=== PATIENT | female | born 1935 | race Caucasian/White ===

== ENCOUNTER 2017-05-10 08:45 | Emergency (ER) | payer MEDICARE, MEDICAID ==
[2017-05-10 09:12] VITALS: BP 105/60
--- NOTE | 2017-05-10 09:15 | UC ---
Skin Complaint HPI - HPI Summary HPI Summary: 81F with finger concern. Erythema and red, painful, and swollen pustule with central scab worsening over three days. No discharge. No fever. Index finger on the right. [ End ] - History of Current Complaint Chief Complaint: UCSkin Time Seen by Provider: 05/10/17 09:13 Stated Complaint: FINGER COMPLAINT Hx Obtained From: Patient Onset/Duration: Gradual Onset Pain Intensity: 5 - Allergy/Home Medications Allergies/Adverse Reactions: Allergies Allergy/AdvReac Type Severity Reaction Status Date / Time Aminoglycosides Allergy Unknown Verified 05/10/17 09:14 Reaction Details bacitracin Allergy Unknown Verified 05/10/17 09:14 Reaction Details neomycin Allergy Unknown Verified 05/10/17 09:14 Reaction Details polymyxin B Allergy Unknown Verified 05/10/17 09:14 Reaction Details Sulfa (Sulfonamide Allergy Unknown Verified 05/10/17 09:14 Antibiotics) Reaction Details Home Medications: Home Medications Acetaminophen [Acetaminophen Extra Strength] 1,000 mg PO BEDTIME 05/10/17 [ History Confirmed 05/10/17] Artificial Tear OPHTH.OINT* [Lacrilube OINT*] 1 applic BOTH EYES BEDTIME [History Confirmed 05/10/17] Artificial Tears* 15 ML BTL [Polyvinyl Alcohol 1.4% OPTH*] 1 drop BOTH EYES QID 05/10/17 [History Confirmed 05/10/17] Aspirin EC Low Dose* [Ecotrin EC Low Dose 81 MG*] 81 mg PO DAILY 05/10/17 [ History Confirmed 05/10/17] Atorvastatin* [Lipitor*] 20 mg PO QPM 05/10/17 [History Confirmed 05/10/17] Conjugated Estrogens VAG CM* [Premarin VAG CREAM*] 1 applic VAGINAL SEE INSTRUCTIONS 05/10/17 [History Confirmed 05/10/17] Cyclosporine 0.05% OPHTH (NF) [Restasis 0.05% OPHTH] 1 drop BOTH EYES BID [History Confirmed 05/10/17] Docusate CAP* [Colace Cap*] 100 mg PO TID 05/10/17 [History Confirmed 05/10/17] Ibandronate Sodium [Boniva] 150 mg PO MONTHLY 05/10/17 [History Confirmed ] Levothyroxine TAB* [Synthroid TAB*] 88 mcg PO DAILY 05/10/17 [History Confirmed 05/10/17] Metoprolol Succinate XL TAB* [Toprol XL TAB*] 25 mg PO DAILY 05/10/17 [History Confirmed 05/10/17] Nitrofurantoin Macrocrystals* [Macrodantin*] 50 mg PO DAILY 05/10/17 [History Confirmed 05/10/17] Omeprazole CAP* [Prilosec CAP* 20 MG] 40 mg PO DAILY 05/10/17 [History Confirmed 05/10/17] Valsartan TAB* [Diovan TAB*] 320 mg PO DAILY 05/10/17 [History Confirmed ] Vitamin THERAPEUTIC TAB* [Theragran TAB*] 1 tab PO DAILY 05/10/17 [History Confirmed 05/10/17] amLODIPine TAB* [Norvasc 5 mg TAB*] 10 mg PO DAILY 05/10/17 [History Confirmed 05/10/17] carBAMazepine TAB(*) [TEGretol TAB(*)] 100 mg PO BEDTIME 05/10/17 [History Confirmed 05/10/17] carBAMazepine TAB(*) [TEGretol TAB(*)] 300 mg PO BID 05/10/17 [History Confirmed 05/10/17] lamoTRIgine TAB(*) [LaMICtal TAB(*)] 200 mg PO BID 05/10/17 [History Confirmed 05/10/17] Review of Systems Skin: Other - finger pain and redness All Other Systems Reviewed And Are Negative: Yes PMH/Surg Hx/FS Hx/Imm Hx Previously Healthy: Yes Endocrine History: Hypothyroidism, Dyslipidemia Cardiovascular History: Hypertension GI/ History: Gastrointestional Bleed Psychological History: Bipolar Disorder - Surgical History Surgical History: Yes Surgery Procedure, Year, and Place: hysterectomy - Social History Alcohol Use: None Substance Use Type: None Smoking Status (MU): Never Smoked Tobacco Physical Exam Triage Information Reviewed: Yes Completion Of Physical Exam Limited Due To: Patient is uncooperative with exam - would pull away quickly when the finger was going to be palpated Vital Signs: Initial Vital Signs Temp 98.3 F 05/10/17 09:07 Pulse 62 05/10/17 09:07 Resp 16 05/10/17 09:07 BP 105/60 05/10/17 09:07 Pulse Ox 100 05/10/17 09:07 Vital Signs Reviewed: Yes Eyes: Positive: Conjunctiva Clear ENT: Positive: Hearing grossly normal Respiratory: Positive: Chest non-tender, Lungs clear, Normal breath sounds Cardiovascular: Positive: RRR Skin: Positive: Other - right infex finger with erythema, raised, red, tender area with break in skin centrally. no streaking. no active discharge. 5x5 mm Course/Dx - Course Course Of Treatment: pt not interested in I&D, will hot pack TID, start keflex and RTO if Sx worsen for I&D - Differential Diagnoses - Skin Complaint Differential Diagnoses: Cellulitis, Local Allergic Reaction, MRSA - Diagnoses Provider Diagnoses: cellulitis right index finger Discharge - Discharge Plan Condition: Good Disposition: HOME Patient Education Materials: Cellulitis (ED) Referrals: Herber Rapp MD [Primary Care Provider] - 1 Day
[2017-05-10] MEDS ORDERED: Cephalexin CAP* 500 MG PO ONE (09:40)
== END 2017-05-10 09:51 | disposition home or self-care (01) ==
LOC: UCCORT 08:45
DX: L03.011 Cellulitis of right finger (principal); E03.9 Hypothyroidism, unspecified; E78.5 Hyperlipidemia, unspecified; I10 Essential (primary) hypertension
CPT/HCPCS: 99212; A9270-GY; G0463

== ENCOUNTER 2017-05-12 13:22 | Emergency (ER) | payer MEDICARE, MEDICAID | END 2017-05-12 16:00 | disposition left against medical advice (07) | LOC: UCCORT 13:22 | DX: Z51.89 Encounter for other specified aftercare (principal); Z53.21 Procedure and treatment not carried out due to patient leaving prior to being seen by health care provider ==

== ENCOUNTER 2017-05-13 09:27 | Emergency (ER) | payer MEDICARE, MEDICAID ==
[2017-05-13 12:10] VITALS: BP 134/57
--- NOTE | 2017-05-13 12:25 | UC ---
Skin Complaint HPI - HPI Summary HPI Summary: Right index finger skin wound is not getting better. This started insidiously. she does have a pill rolling tremor that does abrade the area. They have been on keflex. No cultures were obtained. NO fevers or chills. Td 08. - History of Current Complaint Chief Complaint: UCSkin Time Seen by Provider: 05/13/17 11:59 Stated Complaint: RIGHT POINTER FINGER SKIN COMP Hx Obtained From: Family/Equipment Validation Specialist, Medical Records Onset/Duration: Gradual Onset, Lasting Days Skin Exposure Onset/Duration: Days Ago Timing: Constant Onset Severity: Moderate Current Severity: Moderate Pain Intensity: 6 Location: Discrete, Hand (Right) Character: Swelling, Redness, Raised Aggravating Factor(s): Touch Alleviating Factor(s): Nothing Associated Signs & Symptoms: Negative: Red Streaks, Joint Swelling - Allergy/Home Medications Allergies/Adverse Reactions: Allergies Allergy/AdvReac Type Severity Reaction Status Date / Time Aminoglycosides Allergy Unknown Verified 05/13/17 11:59 Reaction Details bacitracin Allergy Unknown Verified 05/13/17 11:59 Reaction Details neomycin Allergy Unknown Verified 05/13/17 11:59 Reaction Details polymyxin B Allergy Unknown Verified 05/13/17 11:59 Reaction Details Sulfa (Sulfonamide Allergy Unknown Verified 05/13/17 11:59 Antibiotics) Reaction Details Home Medications: Home Medications Cephalexin CAP* [Keflex CAP*] 500 mg PO TID 05/13/17 [History Confirmed 05/13/17 ] Review of Systems Skin: Other - wound as per HPi. All Other Systems Reviewed And Are Negative: Yes PMH/Surg Hx/FS Hx/Imm Hx Previously Healthy: No - MR. - Surgical History Surgical History: Yes Surgery Procedure, Year, and Place: hysterectomy - Family History Known Family History: Positive: Other - no related family history. - Social History Lives: [facility] Alcohol Use: None Substance Use Type: None Smoking Status (MU): Never Smoked Tobacco - Immunization History Most Recent Tetanus Shot: 2008 Physical Exam Triage Information Reviewed: Yes Appearance: Well-Appearing, No Pain Distress, Well-Nourished Vital Signs: Initial Vital Signs Temp 99 F 05/13/17 11:59 Pulse 64 05/13/17 11:59 Resp 18 05/13/17 11:59 BP 134/57 05/13/17 11:59 Pulse Ox 97 05/13/17 11:59 Vital Signs Reviewed: Yes Eyes: Positive: Conjunctiva Clear ENT: Positive: Normal ENT inspection Neck: Positive: Supple, Nontender, No Lymphadenopathy Respiratory: Positive: No respiratory distress, No accessory muscle use. Negative: Respiratory distress Cardiovascular: Positive: Brisk Capillary Refill Abdomen Description: Positive: No Organomegaly, Soft. Negative: Distended, Guarding Neurological: Positive: Muscle Tone Normal. Negative: Fatigued Psychological: Positive: Age Appropriate Behavior Skin Exam: Other - right index finger wound that is cropping up and there is clear serous drainage. Non fluctuant and no purulent drainage could be expressed. There is a rim of pink tissue surrounding the area about 4-5 mm. NO streaking and this is all localized to the the proximal phalynx. With firm palpation, there is no grimace or signs of pain. Course/Dx - Course Course Of Treatment: this may be infectious and keflex is prudent. This may also however but a spider bite with localized inflammation and or pyodermagangrenosum. They will add epsom salt soaks and vaseline gauze bandaging. They will be seeing pcp Thursday and i will give them number for derm should it not improve. For any spreading, they will go to the ED. - Diagnoses Provider Diagnoses: skin wound. possible spider bite. 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 Discharge - Discharge Plan Condition: Good Disposition: HOME Patient Education Materials: Acute Wound Care (ED) Referrals: Herber Rapp MD [Primary Care Provider] - 2 Days
[2017-05-13] MEDS ORDERED: Tetanus-Diptheria Toxoids* 0.5 ML SYRINGE IM ONE (12:27)
== END 2017-05-13 13:24 | disposition home or self-care (01) ==
LOC: UCCORT 09:27
DX: S61.210A Laceration without foreign body of right index finger without damage to nail, initial encounter (principal); R25.1 Tremor, unspecified; X58.XXXA Exposure to other specified factors, initial encounter; Y92.9 Unspecified place or not applicable; Z88.2 Allergy status to sulfonamides
CPT/HCPCS: 90471; 99213; G0463

== ENCOUNTER 2017-06-19 09:06 | Emergency (ER) | payer MEDICARE, MEDICAID ==
[2017-06-19 09:37] VITALS: BP 118/62
--- NOTE | 2017-06-19 10:24 | UC ---
Skin Complaint HPI - HPI Summary HPI Summary: lives at [facility]-patient developed a sore on left side of upper lip they want checked--no known injury - History of Current Complaint Chief Complaint: UCSkin Time Seen by Provider: 06/19/17 10:19 Stated Complaint: FACIAL SKIN COMPLAINT Hx Obtained From: Patient ?: No Onset/Duration: Sudden Onset, Lasting Days, Still Present Timing: Constant Onset Severity: Moderate Current Severity: Moderate Pain Intensity: 4 Pain Scale Used: 0-10 Numeric Location: Discrete Character: Redness Aggravating Factor(s): Nothing Alleviating Factor(s): Nothing Associated Signs & Symptoms: Positive: Negative - Allergy/Home Medications Allergies/Adverse Reactions: Allergies Allergy/AdvReac Type Severity Reaction Status Date / Time Aminoglycosides Allergy Unknown Verified 06/19/17 09:26 Reaction Details bacitracin Allergy Unknown Verified 06/19/17 09:26 Reaction Details neomycin Allergy Unknown Verified 06/19/17 09:26 Reaction Details polymyxin B Allergy Unknown Verified 06/19/17 09:26 Reaction Details Sulfa (Sulfonamide Allergy Unknown Verified 06/19/17 09:26 Antibiotics) Reaction Details Review of Systems Skin: Other - 2 mm diameter superficial skin leasion that staff reported had scant purulent drainage at first after warm packing Eyes: Negative ENT: Negative Respiratory: Negative Cardiovascular: Negative Gastrointestinal: Negative Genitourinary: Negative Motor: Negative Neurovascular: Negative Musculoskeletal: Negative Neurological: Negative Psychological: Negative Is Patient Immunocompromised?: No All Other Systems Reviewed And Are Negative: Yes PMH/Surg Hx/FS Hx/Imm Hx Previously Healthy: No - MR DD Endocrine History: Hypothyroidism, Dyslipidemia Cardiovascular History: Hypertension Neurological History: Seizures - Surgical History Surgical History: Yes Surgery Procedure, Year, and Place: hysterectomy - Family History Known Family History: Positive: Other - unable to obtain pt with MR DD staff does not know information - Social History Occupation: Disabled Lives: Alf Alcohol Use: None Substance Use Type: None Smoking Status (MU): Never Smoked Tobacco - Immunization History Most Recent Tetanus Shot: 2008 Physical Exam Triage Information Reviewed: Yes Appearance: Well-Appearing, No Pain Distress, Well-Nourished Vital Signs: Initial Vital Signs Temp 98.1 F 06/19/17 09:27 Pulse 63 06/19/17 09:27 Resp 18 06/19/17 09:27 BP 118/62 06/19/17 09:27 Pulse Ox 98 06/19/17 09:27 Vital Signs Reviewed: Yes Eye Exam: Normal Eyes: Positive: Conjunctiva Clear ENT Exam: Normal ENT: Positive: Normal ENT inspection, Hearing grossly normal. Negative: Nasal congestion Dental Exam: Normal Neck exam: Normal Neck: Positive: Supple, Nontender, No Lymphadenopathy Respiratory Exam: Normal Respiratory: Positive: Chest non-tender, No respiratory distress, No accessory muscle use Cardiovascular Exam: Normal Cardiovascular: Positive: RRR, Pulses Normal, Brisk Capillary Refill Musculoskeletal Exam: Normal Musculoskeletal: Positive: Strength Intact, ROM Intact, No Edema Neurological Exam: Normal Neurological: Positive: Alert Psychological Exam: Normal Psychological: Positive: Normal Response To Family - to patients usual Skin Exam: Other Skin: Positive: Other - 2 mm skin lesion without evidence of drainage or erythema, left upper lip Course/Dx - Course Course Of Treatment: warm soaks, mild soap and water wash bactroban bid until healed, follow with pcp prn - Diagnoses Provider Diagnoses: skin lesion left upper lip Discharge - Discharge Plan Condition: Stable Disposition: HOME Prescriptions: Mupirocin 2% OINT* [Bactroban 2 % Oint*] 1 applic TOPICAL BID #1 tube Patient Education Materials: Abrasion (ED), Warm Compress or Soak (ED) Referrals: Herber Rapp MD [Primary Care Provider] - If Needed
== END 2017-06-19 10:46 | disposition home or self-care (01) ==
LOC: UCCORT 09:06
DX: L98.9 Disorder of the skin and subcutaneous tissue, unspecified (principal); Z88.3 Allergy status to other anti-infective agents; Z88.8 Allergy status to other drugs, medicaments and biological substances; Z88.2 Allergy status to sulfonamides
CPT/HCPCS: 99212; G0463

== ENCOUNTER 2017-09-28 13:34 | Emergency (ER) | payer MEDICARE, MEDICAID ==
[2017-09-28 14:18] VITALS: BP 113/60
--- NOTE | 2017-09-28 14:25 | UC ---
Lower Extremity/Ankle HPI - HPI Summary HPI Summary: per care partner, pt has swelling to L lateral ankle since yesterday. today, pt c/ o pain. recently used leg braces but they were d/c'ed 2 weeks ago. pt does have a hx of hitting that ankle on her bed rail and wheelchair. no other hx of injury or fever. no rash. pt is non reliable and mainly non verbal. - History of Current Complaint Hx Obtained From: Family/Pc Maintenance Technician Onset/Duration: Gradual Onset Pain Intensity: 8 Aggravating Factor(s): Nothing Alleviating Factor(s): Nothing Able to Bear Weight: No - non ambulatory <Naomi Suazo - Last Filed: 09/28/17 14:19> <Lauren Barnhart - Last Filed: 09/29/17 07:05> - History of Current Complaint Chief Complaint: UCLowerExtremity Stated Complaint: LEFT ANKLE PAIN Time Seen by Provider: 09/28/17 14:18 - Allergies/Home Medications Allergies/Adverse Reactions: Allergies Allergy/AdvReac Type Severity Reaction Status Date / Time Aminoglycosides Allergy Unknown Verified 09/28/17 14:20 Reaction Details bacitracin Allergy Unknown Verified 09/28/17 14:20 Reaction Details neomycin Allergy Unknown Verified 09/28/17 14:20 Reaction Details polymyxin B Allergy Unknown Verified 09/28/17 14:20 Reaction Details Sulfa (Sulfonamide Allergy Unknown Verified 09/28/17 14:20 Antibiotics) Reaction Details Home Medications: Home Medications Cephalexin CAP* [Keflex 250 CAP*] 250 mg DAILY 09/28/17 [History Confirmed 09/28] PMH/Surg Hx/FS Hx/Imm Hx - Additional Past Medical History Additional PMH: IDD, L hemiplegia, seizures, anemia, uti's Endocrine History: Thyroid Disease, Dyslipidemia Cardiovascular History: Hypertension GI/ History: Gastroesophageal Reflux - Surgical History Surgical History: Yes Surgery Procedure, Year, and Place: hysterectomy - Family History Known Family History: Positive: Other - unable to obtain pt with MR DD staff does not know information - Social History Lives: [facility] Alcohol Use: None Substance Use Type: None Smoking Status (MU): Never Smoked Tobacco - Immunization History Most Recent Tetanus Shot: 2008 Vaccination Up to Date: Yes <Naomi Suazo - Last Filed: 09/28/17 14:19> Review of Systems Constitutional: Negative Skin: Negative Musculoskeletal: Other: - swelling/pain L lateral ankle Is Patient Immunocompromised?: No All Other Systems Reviewed And Are Negative: No - Comments Additional Review of Systems Comments: hx per care partner, pt has cognitive limitation plus is not reliable <Naomi Suazo - Last Filed: 09/28/17 14:19> Physical Exam Triage Information Reviewed: Yes Appearance: Well-Appearing Vital Signs: Initial Vital Signs Temp 98.6 F 09/28/17 14:06 Pulse 63 09/28/17 14:06 Resp 21 09/28/17 14:06 BP 113/60 09/28/17 14:06 Pulse Ox 99 09/28/17 14:06 Eye Exam: Normal Eyes: Positive: Conjunctiva Clear ENT: Positive: Normal ENT inspection Neck: Positive: Supple Respiratory: Positive: Lungs clear, Normal breath sounds, No respiratory distress Cardiovascular: Positive: RRR, No Murmur Abdomen Description: Positive: Nontender, No Organomegaly, Soft Bowel Sounds: Positive: Present Musculoskeletal: Positive: Other: - pt in her WC. comparison both lower legs: mild swelling L lateral ankle but no erythema or warmth. no reaction to palpation. passive rom with no sign of pain. if I ask if pain, pt nobs her head up and down(yes). foot with gross s/v and moves with stimulation. Neurological: Positive: Alert - per baseline according to care partner Psychological: Positive: Other: - normal respone to care partner. Skin Exam: Normal <Naomi Suazo - Last Filed: 09/28/17 14:19> Vital Signs: Initial Vital Signs Temp 98.6 F 09/28/17 14:06 Pulse 63 09/28/17 14:06 Resp 21 09/28/17 14:06 BP 113/60 09/28/17 14:06 Pulse Ox 99 09/28/17 14:06 <Lauren Barnhart - Last Filed: 09/29/17 07:05> Diagnostics - Radiology No standard instances Radiology Interpretation Completed By: Radiologist - L ankle=nonspecific sts, no fx(see report) <Naomi Suazo - Last Filed: 09/28/17 14:19> Lower Extremity Course/Dx - Course Course Of Treatment: acute swelling L lateral ankle. no fever or rash and not warm. no fx on xray. I think this is c/w bursitis - Differential Dx/Diagnosis Provider Diagnoses: Bursitis L lateral ankle <Naomi Suazo - Last Filed: 09/28/17 14:19> Discharge - Sign-Out/Discharge Documenting (check all that apply): Discharge/Admit/Transfer - Billing Disposition and Condition Condition: STABLE Disposition: Home <Naomi Suazo - Last Filed: 09/28/17 14:19> - Billing Disposition and Condition Condition: STABLE Disposition: Home <Lauren Barnhart - Last Filed: 09/29/17 07:05> - Discharge Plan Condition: Stable Disposition: HOME Prescriptions: Ibuprofen TAB* [Motrin TAB* 400 MG] 400 mg PO Q8H 5 Days #15 tab Patient Education Materials: Ankle Bursitis (ED) Referrals: Herber Rapp MD [Primary Care Provider] - If Needed Booker Cespedes MD [Medical Doctor] - As Soon As Possible Additional Instructions: SCRIPT FOR JIMMIE HEEL PILLOW FOR DAILY USE PROVIDED. Attestation Statement User Type: Provider - I was available for consult. This patient was seen by the SANDRA. The patient was not presented to, seen by, or examined by me. -Toddj <Lauren Barnhart - Last Filed: 09/29/17 07:05>
[2017-09-28] MEDS ORDERED: Ibuprofen TAB* 400 MG PO ONE (14:28)
--- NOTE | 2017-09-28 14:57 | RAD ---
Indication: Lateral ankle swelling and pain. Comparison: No relevant prior exams available on the [facility] PACS for comparison. Technique: AP, mortise, and crosstable lateral views LEFT ankle. Report: Bone density appears decreased throughout. No cortical disruption or suspicious trabecular irregularity to suggest fracture. Polyarticular mild osteoarthritis. No suggestion of talocrural joint effusion. Moderate nonfocal soft tissue swelling. No conspicuous foreign body or subcutaneous emphysema. Diffuse skeletal muscle atrophy. IMPRESSION: Negative for fracture. Nonspecific soft tissue swelling.
== END 2017-09-28 15:30 | disposition home or self-care (01) ==
LOC: UCCORT 13:34
DX: M71.572 Other bursitis, not elsewhere classified, left ankle and foot (principal); Z88.2 Allergy status to sulfonamides; Z88.8 Allergy status to other drugs, medicaments and biological substances
CPT/HCPCS: 99212; A9270-GY; G0463

== ENCOUNTER 2018-04-15 10:36 | Observation (INO) | payer MEDICARE, MEDICAID ==
--- NOTE | 2018-04-15 10:43 | ED ---
Neurological HPI - HPI Summary HPI Summary: LEVEL 5 CAVEAT Time seen by provider: 10:35. The patient is an 82 y/o F presenting to [facility] arriving by ambulance from [facility] with a chief complaint of stroke-like symptoms sudden onset 0930 this morning with last known well at 0900. At this time, the staff at the center noticed that the patient had a new onset of left-sided weakness and slurred speech. While the patient has hx of intellectual disability disorder and prior hx of left hemiplegia, it was seen that her baseline had changed. EMS reports that the patient is closer to baseline, and her left-sided strength improved during transport although it is still significantly weaker in the left than right. The patient has no current complaints. She has hx of HTN. Her history is limited by intellectual disability disorder. - History of Current Complaint Stated Complaint: POSS CODE BRICE Time Seen by Provider: 04/15/18 10:36 Hx Obtained From: EMS, Medical Records Hx From Patient Unobtainable Due To: Other - LEVEL 5 CAVEAT due to hx limited by intellecutal disability disorder Onset/Duration: Sudden Onset, Other Timing: Sudden Onset Neurological Deficit Location: LUE Character: Weak - in left arm, Impaired Speech Associated Signs and Symptoms: Positive: Weakness - in left arm, Impaired Speech - Allergy/Home Medications Allergies/Adverse Reactions: Allergies Allergy/AdvReac Type Severity Reaction Status Date / Time Aminoglycosides Allergy Unknown Verified 04/15/18 12:25 Reaction Details bacitracin Allergy Unknown Verified 04/15/18 12:25 Reaction Details neomycin Allergy Unknown Verified 04/15/18 12:25 Reaction Details polymyxin B Allergy Unknown Verified 04/15/18 12:25 Reaction Details Sulfa (Sulfonamide Allergy Unknown Verified 04/15/18 12:25 Antibiotics) Reaction Details Home Medications: Home Medications Acetaminophen SUPP* [Tylenol Supp*] 325 mg DC Q4H PRN 04/15/18 [History Confirmed 04/15/18] Acetaminophen TAB* [Tylenol TAB*] 650 mg PO Q4H PRN 04/15/18 [History Confirmed 04/15/18] Atorvastatin* [Lipitor*] 20 mg PO BEDTIME 04/15/18 [History Confirmed 04/15/18] Ferrous Gluconate TAB* [Fergon TAB*] 325 mg PO BID 04/15/18 [History Confirmed 04/15/18] GuaiFENesin DM* [Robitussin DM*] 5 ml PO Q4H PRN 04/15/18 [History Confirmed 01/22] Hypromellose [Genteal Severe] 0.3 % BOTH EYES TID PRN 04/15/18 [History Confirmed 04/15/18] Ibandronate TAB(NF) [Boniva(NF)] 150 mg PO MONTHLY 04/15/18 [History Confirmed 04/15/18] L. Acidophilus/Lactobac Spor [Acidophilus/l-Sporogenes] 1 tab PO BID 04/15/18 [ History Confirmed 04/15/18] Losartan TAB* [Cozaar TAB*] 100 mg PO DAILY 04/15/18 [History Confirmed 04/15/18 ] Mag Hydrox/Aluminum Hyd/Simeth [Antacid Maximum Strength Liq] 15 ml PO Q4HR PRN 04/15/18 [History Confirmed 04/15/18] Metoprolol Succinate XL TAB* [Toprol XL TAB*] 25 mg PO DAILY 04/15/18 [History Confirmed 04/15/18] Multivitamins/Minerals TAB* [Theragran/minerals TAB*] 1 tab PO DAILY 04/15/18 [ History Confirmed 04/15/18] Polyethylene Glycol 3350* [Miralax*] 17 gm PO DAILY PRN 04/15/18 [History Confirmed 04/15/18] Pseudoephedrine TAB* [Sudafed TAB*] 30 mg PO Q6H PRN 04/15/18 [History Confirmed 04/15/18] Sodium Phosphate ADULT ENEMA* [Fleet Enema*] 1 enema DC Q4D PRN 04/15/18 [ History Confirmed 04/15/18] Transparent Dressing [Tegaderm] 1 each TOPICAL Q3D 04/15/18 [History Confirmed 04/15/18] amLODIPine TAB* [Norvasc 5 mg TAB*] 5 mg PO DAILY 04/15/18 [History Confirmed ] carBAMazepine TAB(*) [TEGretol TAB(*)] 100 mg PO BEDTIME 04/15/18 [History Confirmed 04/15/18] carBAMazepine TAB(*) [TEGretol TAB(*)] 300 mg PO 0700,1200 04/15/18 [History Confirmed 04/15/18] PMH/Surg Hx/FS Hx/Imm Hx Endocrine/Hematology History: Reports: Hx Thyroid Disease - Levothyroxine Cardiovascular History: Reports: Hx Hypertension - Surgical History Surgery Procedure, Year, and Place: hysterectomy - Family History Known Family History: Positive: Other - LEVEL 5 CAVEAT due to [facility] staff does not know information - Social History Lives: Assisted Living Alcohol Use: None Hx Substance Use: No Substance Use Type: Reports: None Hx Tobacco Use: No Smoking Status (MU): Never Smoked Tobacco Do You Chew or Dip Tobacco: No Have You Chewed or Dipped Tobacco in the LAST YEAR: No Review of Systems Positive: Weakness - left-sided, Slurred Speech All Other Systems Reviewed And Are Negative: No - Comments Additional Review of Systems Comments: LEVEL 5 CAVEAT due to intellectual disability Physical Exam - Summary Physical Exam Summary: Constitutional: Well-developed, Well-nourished, Alert. (-) Distressed Skin: Warm, Dry HENT: Normocephalic; Atraumatic Eyes: Conjunctiva normal Neck: Musculoskeletal ROM normal neck. (-) JVD, (-) Stridor, (-) Tracheal deviation Cardio: Rhythm regular, rate normal, Heart sounds normal; Intact distal pulses; The pedal pulses are 2+ and symmetric. Radial pulses are 2+ and symmetric. (-) Murmur Pulmonary/Chest wall: Effort normal. (-) Respiratory distress, (-) Wheezes, (-) Rales Abd: Soft, (-) epigastric tenderness, (-) Distension, (-) Guarding, (-) Rebound Musculoskeletal: (-) Edema Lymph: (-) Cervical adenopathy Neuro: Alert, Cranial nerves II-XII are grossly intact, (-) Nystagmus, (-) Ataxia by finger to nose testing, unable to raise left arm to 90 degrees, left arm appears contracted at times, left leg drift before 10 seconds, slurred speech, and able to follow basic commands Psych: Mood and affect Normal Triage Information Reviewed: Yes Vital Signs Reviewed: Yes - Daniel Coma Scale Best Eye Response: 4 - Spontaneous Best Motor Response: 6 - Obeys Commands Best Verbal Response: 5 - Oriented Coma Scale Total: 15 Diagnostics - Laboratory Result Diagrams: 04/15/18 10:55 04/15/18 10:55 Lab Statement: Any lab studies that have been ordered have been reviewed, and results considered in the medical decision making process. - Radiology CXR Radiology Interpretation Completed By: Radiologist Summary of Radiographic Findings: No active cardiopulmonary disease is noted. ED physician has reviewed this report. - CT Brain CT CT Interpretation Completed By: Radiologist Summary of CT Findings: 1. Image quality is slightly degraded by motion artifact as well as the patient's circumferentially thickened calvarium. 2. There is no definite extra-axial hemorrhage or definite mass effect. 3. Appearance is consistent with chronic microvascular disease. ED physician has reviewed this report. - EKG 1056 Cardiac Rate: NL - 65 BPM EKG Rhythm: Sinus Rhythm Summary of EKG Findings: No STEMI. NIH Scale - NIH Scale Level of Consciousness: Alert/Keenly Responsive Ask Patient the Month and His/Her Age: Both Correct Ask Pt to Open/Close Eyes and Dev Technical Mgr/Release Non-Paretic Hand: Both Correctly Best Gaze (Only Horizontal Eye Movement): Normal Visual Field Testing: No Visual Loss Facial Paresis-Pt to Smile & Close Eyes or Grimace Symmetry: Minor Paralysis Motor Function - Right Arm: No Drift-Holds 10 Seconds Motor Function - Left Arm: Effort Against [place] Motor Function - Right Leg: No Drift-Holds 10 Seconds Motor Function - Left Leg: Drifts LT 10 seconds Limb Ataxia-Must be out of Proportion to Weakness Present: Present in Two Limbs Sensory (Use Pinprick to Test Arms/Legs/Trunk/Face): Normal Best Language (Describe Picture, Name Items): Severe Aphasia Dysarthria (Read Several Words): Slurs Some Words Extinction and Inattention: No Abnormality Total Score: 9 Course/Dx - Course Course Of Treatment: LEVEL 5 CAVEAT. Time seen by provider: 10:35. The patient is an 82 y/o F presenting to [facility] arriving by ambulance from [facility] with a chief complaint of stroke-like symptoms sudden onset 929 this morning with last known well at 0900. At this time, the staff at the center noticed that the patient had a new onset of left-sided weakness and slurred speech. While the patient has hx of intellectual disability disorder and prior hx of left hemiplegia, it was seen that her baseline had changed. EMS reports that the patient is closer to baseline, and her left-sided strength improved during transport although it is still significantly weaker in the left than right. The patient has no current complaints. She has hx of HTN. Her history is limited by intellectual disability disorder. Code Brice called at 1028. Upon physical exam, the patient exhibits unable to raise left arm to 90 degrees, left arm appears contracted at times, left leg drift before 10 seconds, slurred speech, and able to follow basic commands. With prior hx of left hemiplegia, and there is 1/3 of the MCA territory with greater infarct, TPA is certainly contraindicated for this patient. Administration would most likely not improve the level of function as her baseline function is quite low currently. I spoke with the radiologist concerning Brain CT at 1038, which is negative thus far. EKG is negative. CXR is negative. Blood work reveals decreased RBCs, Hgb, Hct and elevated BUN/Creatinine. UA reveals nitrates, leukocytes, WBCs, and bacteria. I consulted with Dr. Cowan, neurology, who will see the patient in the ED. I also spoke with Dr. Taylor, hospitalist, who accepts the patient for admission at 1135. She is diagnosed with CVA. - Diagnoses Provider Diagnoses: CVA (cerebral vascular accident) During the Visit The Following Alert/Code Occurred: Code Brice - called at 1028 - Physician Notifications Discussed Care Of Patient With: Atul Cowan - neurology Time Discussed With Above Provider: 11:00 Instructed by Provider To: Other Discharge - Sign-Out/Discharge Documenting (check all that apply): Patient Departure - Patient will be admitted to [facility] for further care. - Discharge Plan Condition: Stable Disposition: ADMITTED TO [facility] - Billing Disposition and Condition Condition: STABLE Disposition: Admitted to [facility] - Attestation Statements Document Initiated by Oksana: Yes Documenting Scribe: Anita Manrique Provider For Whom Oksana is Documenting (Include Credential): Dr. Milo Barba MD Scribe Attestation: Anita Jules scribed for Dr. Milo Barba MD on 04/15/18 at 2117. Scribe Documentation Reviewed: Yes Provider Attestation: The documentation as recorded by the Anita hughes accurately reflects the service I personally performed and the decisions made by me, Dr. Milo Barba MD Status of Scribe Document: Viewed
[2018-04-15 11:05] LABS: ABS Basophils 0.1 10^3/ul (0-0.2); ABS Eosinophils 0.3 10^3/ul (0-0.6); ABS Lymphocytes 0.9 10^3/ul (1.0-4.8); ABS Monocytes 0.7 10^3/ul (0-0.8); ABS Neutrophils 3.5 10^3/ul (1.5-7.7); ABS Nucleated RBC 0 10^3/ul; Eosinophil % 5.2 %; Hematocrit 31 % (35-47); Hemoglobin 10.3 g/dl (12.0-16.0); Lymphocyte % 15.8 %; Mean Corpuscular HGB Conc 34 g/dl (31-36); Mean Corpuscular Hemoglobin 33 pg (27-31); Mean Corpuscular Volume 97 fL (80-97); Mean Platelet Volume 6.5 fL (7.4-10.4); Nucleated Red Blood Cells % 0; Platelet Count 261 10^3/ul (150-450); Red Blood Count 3.13 10^6/ul (4.00-5.40); Red Cell Distribution Width 13 % (10.5-15); White Blood Count 5.4 10^3/ul (3.5-10.8)
[2018-04-15 11:24] LABS: Activated Partial Thrombo Time 29.5 seconds (26.0-36.3)
[2018-04-15 11:30] LABS: Albumin 3.6 g/dL (3.2-5.2); Albumin/Globulin Ratio 1.2 (1-3); Calcium 8.9 mg/dL (8.6-10.3); Globulin 3.1 g/dL (2-4); HDL Cholesterol 53.8 mg/dL; Total Bilirubin 0.3 mg/dL (0.2-1.0); Total Protein 6.7 g/dL (6.4-8.9)
[2018-04-15 11:54] LABS: Urine Appearance Cloudy; Urine Bacteria 1+ (Absent); Urine Bilirubin Negative (Negative); Urine Blood Negative (Negative); Urine Color Yellow; Urine Glucose Negative (Negative); Urine Ketones Negative (Negative); Urine Nitrite Positive (Negative); Urine Protein Negative (Negative); Urine Red Blood Cell Trace(0-2/hpf) (Absent); Urine Specific Gravity 1.011 (1.010-1.030); Urine Urobilinogen Negative (Negative); Urine White Blood Cell 2+(11-20/hpf) (Absent)
[2018-04-15 12:35] LABS: Carbamazepine 8.6 mcg/mL (4.0-12.0)
[2018-04-15 13:00] LABS: TSH (Thyroid Stimulating Horm) 2.68 mcIU/mL (0.34-5.60)
--- NOTE | 2018-04-15 14:09 | CONS ---
NEUROLOGY CONSULTATION REPORT: DATE OF CONSULT: 04/15/18 Code lal was activated to evaluate Ms. Thorpe. CONSULTING PROVIDER: Dr. Barba REASON FOR CONSULT: Left facial droop. CHIEF COMPLAINT: "Not feeling well, my back hurts." HISTORY OF PRESENT ILLNESS: Mrs. Radha Thorpe is an 82-year-old female who sees Dr. 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 She was last seen in the clinic on 02/17/18. She is currently taking lamotrigine 200 mg 1 tablet by mouth twice a day and Tegretol 200 mg to take 1-1/2 tablet by mouth twice a day at 7 a.m. and noon and then half a tablet at bedtime. [facility], she was last known well at 9:30 a.m. and she had symptoms at 9:30 a.m. where she developed left-sided facial droop. The patient has reported left hemiparesis at baseline. 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 The patient stated that she has low back pain. The pain is chronic. The pain does not radiate to her extremities. She also complains of burning sensation when urinating. From Dr. Ferguson's notes, she does have history of UTIs in the past and has had episodes of possible seizures in the setting of UTI. The patient was acutely evaluated in the emergency room. I personally reviewed the CT head results, which showed no evidence of acute intracranial abnormalities. There is a chronic right MCA vascular territory infarction involving the right frontal lobe. There was a concern that there is streak artifact versus possible hematoma on the left side according to Radiology, but I was unable to appreciate this finding on my interpretation. PAST MEDICAL HISTORY: Intellectual disability, left hemiplegia, constipation, seizure, recurrent UTIs, menopause disorder, history of anemia, osteoporosis, hypertension, dyslipidemia, hypothyroidism, left MCA stroke, GERD. PAST SURGICAL HISTORY: Tonsillectomy. HOME MEDICATIONS: 1. Lamotrigine 200 mg take 1 tablet by mouth twice a day. 2. Tegretol 200 mg take 1-1/2 tablets by mouth twice a day and half a tablet at bedtime. 3. Aspirin 81 mg daily. 4. Omeprazole 40 mg 1 p.o. daily. 5. Macrodantin 50 mg 1 p.o. daily. 6. MiraLAX. 7. Colace 100 mg 1 p.o. t.i.d. 8. Multivitamins 1 capsule daily. 9. Levothyroxine sodium 88 mcg 1 by mouth daily. 10. Premarin vaginal cream. 11. Artificial Tears. 12. Acetaminophen extra strength 500 mg 2 tablets by mouth every evening. 13. Pseudoephedrine 30 mg 2 tablets by mouth every 6 hours as needed for sinus congestion. 14. Atorvastatin calcium 20 mg 1 tablet at bedtime. 15. Amlodipine 10 mg p.o. daily. 16. Metoprolol succinate 25 mg p.o. daily. 17. Ibandronate sodium 150 mg take 1 tablet by mouth once a month. 18. Antacid. 19. Fleet Enema for constipation. 20. Losartan potassium 100 mg 1 by mouth every day. 21. Toprol-XL 150 mg 1 by mouth every day. 22. Norvasc 5 mg 1 by mouth every day. 23. Valsartan 320 mg 1 by mouth daily. ALLERGIES: SULFONAMIDE, NEOMYCIN, AMINOGLYCOSIDE, POLYMYXIN B, BACITRACIN. FAMILY HISTORY: Unknown. SOCIAL HISTORY: The patient is disabled. She denied any tobacco or alcohol use. She lives in a community living services. REVIEW OF SYSTEMS: A 14-point review of systems was obtained and otherwise negative except what was mentioned in the HPI. PHYSICAL EXAM: Vital Signs: Temperature 97.6, pulse of 67, respiratory rate of 19, oxygen saturation of 99%, blood pressure of 143/68. General: Well- nourished, well-developed disabled female who is in no acute distress. Head: Normocephalic and atraumatic. Eyes: Conjunctivae/corneas are clear. Neck is supple and symmetrical with no carotid bruit. Lungs: Clear to auscultation bilaterally. Cardiovascular: Regular rate and rhythm with normal S1 and S2. Extremities: Normal range of motion except for paraparesis in the lower extremity. No hammertoes or high arches. Skin: No skin lesions or lacerations. Psych: Affect is broad and low mood. Neurological Examination: Mental status: Awake, alert, oriented to person, place, time, but not general circumstances. She is moderate dysarthric and difficult to comprehend speech. She is able to follow command. She has intellectual disability. She has psychomotor delay. Cranial nerves: Normal confrontation testing bilaterally. Pupils are mid range and reactive to light. Normal consensual response. Sensation is intact on the forehead, cheeks, and jaw region bilaterally. She has a left facial droop. She is able to hear throughout the history process, but she is hard of hearing and I examined her head to increase the tone. Tongue is symmetrical and midline. Motor Examination: She has slight left hemiparesis at baseline. Increase in tone in the upper extremities. Increase in tone in bilateral lower extremities. The patient is frail. She is moving the right upper extremity with good strength. She is able to raise both thumbs and move her legs to command. She is able to lift her legs actually against to gravity, so graded about 3-4/5. Reflexes: Right/Left brachioradialis 1/1, biceps 1/1, triceps 1/1, patella trace/trace, ankle 0/0, plantar mute/mute. Sensation is intact to light touch throughout. Coordination: Normal finger-to- nose on the right with motor dysmetria on the left. Gait was not assessed as the patient is paraparetic and wheelchair bound. ASSESSMENT: Radha Thorpe is an 82-year-old female with intellectual disability who has history of right middle cerebral artery vascular territory stroke and localization related epilepsy, who presented with left facial droop. 1. Left facial droop. I suspect, this is recrudescence of a previous neurological deficit in the setting of urinary tract infection given her history of recurrent urinary tract infections. Other differential diagnosis would be small new cortical ischemic stroke in the right frontal region. 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 She is not a candidate for IV tPA due to low NIH stroke scale and given that her modified Wagoner scale is at a 4 at baseline. There is a high risk of complications related to TPA that does not outweigh the benefit of not using it at all. She is not a candidate for mechanical thrombectomy given the low NIH stroke scale. Other differential diagnosis include a breakthrough seizure with Yogesh's paralysis. 2. Recurrent urinary tract infections. 3. Localization related epilepsy, on lamotrigine and carbamazepine. 4. History of hypertension with a slightly elevated blood pressure at this time. 5. Intellectual disability. RECOMMENDATIONS: I recommend admitting the patient under the hospitalist service. We will need an MRI of the brain without contrast to evaluate for any new areas of infarct and to confirm the streak artifact that the radiologist is currently reading as a possible hemorrhage/hematoma. I cannot appreciate any evidence of intracranial hemorrhage on my interpretation of the CT scan. The patient does not need ICU admission. She can be admitted to [address] [place] [address]. Neuro checks every 4 hours. Continue aspirin and statin therapy. No need to change the antiplatelet therapy at this time as a new stroke is not highly suspected and she may have other possible causes to her left facial droop. Please check a TSH and vitamin B12. Keep a permissive blood pressure with systolic pressure in the 140 to less than 180. Please consult PT/OT/ADVERTISING DIRECTOR to evaluate and treat. Please do a bedside swallow evaluation. Obtain clean urine sample to check for urinary tract infection. VTE prophylaxis with subcutaneous heparin 5000 units t.i.d. Continue lamotrigine and Tegretol at the home dose. Please obtain both carbamazepine and lamotrigine levels. Please order bedside routine EEG. TIME SPENT: I spent a total of 60 minutes of critical care time evaluating the patient for acute neurological disturbance, obtaining history, examining the patient, interpreting the CT results, and discussing the treatment plan with the primary team. I will continue to follow. [id number]/LARA #: [id number] BONIFACIO
[2018-04-15] MEDS ORDERED: Acetaminophen TAB* 325 MG PO PRN ×2 (14:55→15:01)
[2018-04-15] MEDS ORDERED: Polyethylene Glycol 3350* 17 GM PACKET PO PRN (15:01)
--- NOTE | 2018-04-15 16:45 | PN ---
Subjective Date of Service: 04/15/18 Length of Stay: 1 Days Neurology is following Mr. Thorpe for seizures. Review of Systems: Denied CP, SOB, or palpitations. Objective Active Medications: Acetaminophen (Tylenol Tab*) 650 mg PO Q4H PRN PRN Reason: FEVER/PAIN Amlodipine Besylate (Norvasc Tab*) 5 mg PO DAILY JESSICA Aspirin (Aspirin Ec Tab*) 81 mg PO DAILY JESSICA Atorvastatin Calcium (Lipitor*) 20 mg PO BEDTIME JESSICA Carbamazepine (Tegretol Tab(*)) 100 mg PO BEDTIME JESSICA Carbamazepine (Tegretol Tab(*)) 300 mg PO 0700,1200 JESSICA Docusate Sodium (Colace Cap*) 100 mg PO TID JESSICA Ferrous Gluconate (Fergon Tab*) 324 mg PO BID JESSICA Ceftriaxone Sodium 1 gm/ (Sodium Chloride) 50 mls @ 200 mls/hr IVPB Q24H JESSICA Lamotrigine (Lamictal Tab(*)) 200 mg PO BID JESSICA Levothyroxine Sodium (Synthroid Tab*) 88 mcg PO QAM@0600 JESSICA Losartan Potassium (Cozaar Tab*) 100 mg PO DAILY JESSICA Metoprolol Succinate (Toprol Xl Tab*) 25 mg PO DAILY JESSICA Multivitamins/Minerals (Theragran/Minerals Tab*) 1 tab PO DAILY JESSICA Pantoprazole Sodium (Protonix Tab (Nf)) 40 mg PO QAM JESSICA Polyethylene Glycol/Electrolytes (Miralax*) 17 gm PO DAILY PRN PRN Reason: CONSTIPATION Vital Signs 04/15/18 04/15/18 04/15/18 10:49 10:51 10:56 Temperature 97.6 F Pulse Rate 67 67 Respiratory 20 23 19 Rate Blood Pressure 173/76 143/68 (mmHg) O2 Sat by Pulse 98 99 Oximetry 04/15/18 04/15/18 04/15/18 11:00 11:21 11:30 Temperature Pulse Rate 65 67 Respiratory 23 16 24 Rate Blood Pressure 148/69 (mmHg) O2 Sat by Pulse 98 98 Oximetry 04/15/18 04/15/18 04/15/18 11:51 12:00 12:22 Temperature Pulse Rate 68 67 66 Respiratory 15 18 17 Rate Blood Pressure 171/125 136/69 (mmHg) O2 Sat by Pulse 98 97 98 Oximetry 04/15/18 04/15/18 04/15/18 12:30 12:51 13:00 Temperature Pulse Rate 64 68 67 Respiratory 15 17 18 Rate Blood Pressure 158/74 (mmHg) O2 Sat by Pulse 97 98 98 Oximetry 04/15/18 04/15/18 13:21 13:30 Temperature Pulse Rate 64 64 Respiratory 16 17 Rate Blood Pressure 138/65 (mmHg) O2 Sat by Pulse 99 99 Oximetry Intake and Output Last 24 Hours 04/13/18 04/14/18 04/15/18 04/16/18 06:59 06:59 06:59 06:59 Weight 130 lb Neurology Exam: General: Awake, Alert, Oriented x3 HEENT: Normocephalic/atraumatic, sclera anicteric, mucous membranes moist Neck: Supple Chest: Clear to auscultation bilaterally Cardiovascular: Regular rate and rhythm without murmurs, rubs, gallops Abdomen: Soft, nontender/nondistended Extremities: No clubbing, cyanosis, or edema Neurological Findings: Awake, Alert, Oriented x3 Speech: fluent without dysrhythmia, repetition intact Cranial Nerve: PEERL, EOM intact, VFF, no nystagmus, face symmetric bilaterally , facial sensation intact, hearing intact to finger rub bilaterally, palate elevates symmetrically, tongue midline, SCM and Trapezius s/s. Motor: s/s throughout, proximal and distal extremities x4 tone/bulk normal Sensation: intact to LT/PP bilaterally upper and lower extremities Deep Tendon Reflex: 2+ symmetric in the upper/lower extremities, Babinski - down going Finger to nose, rapid alternating movements intact without tremor, no dysdiadochokinesia Gait: intact with good arm swing and stride Result Diagrams: 04/15/18 10:55 04/15/18 10:55
[2018-04-15] MEDS: cefTRIAXone(*) 1 GM in NS 0.9% 50 ML* 50 ML IVPB SCH (17:19)
[2018-04-15] MEDS: carBAMazepine TAB(*) 200 MG PO SCH (21:35)
[2018-04-15] MEDS: lamoTRIgine TAB(*) 100 MG PO SCH (21:35)
[2018-04-15] MEDS: Atorvastatin* 20 MG TAB PO SCH (21:35)
[2018-04-15] MEDS: Docusate CAP* 100 MG PO SCH (22:08)
[2018-04-15] MEDS: Ferrous Gluconate TAB* 324 MG TAB PO SCH (22:09)
[2018-04-16] MEDS: Heparin VIAL(*) 5000 UNITS/ML VIAL (FIVE THOUSAND) SUBCUT SCH ×4 (00:36→21:22)
--- NOTE | 2018-04-16 03:03 | HP ---
CC: [facility]; Dr. Rapp * HISTORY AND PHYSICAL: DATE OF ADMISSION: 04/15/18 PROVIDER: Vivian Mackay NP PRIMARY CARE PROVIDER: Dr. Rapp. ATTENDING PHYSICIAN WHILE IN THE HOSPITAL: Dr. Kasi Taylor * (dictated by Vivian Mackay NP). CHIEF COMPLAINT: 1. Left facial droop. 2. Slurred speech. HISTORY OF PRESENT ILLNESS: Ms. Thorpe is an 82-year-old female with past medical history significant for intellectual delay, seizures, anemia, left hemiplegia, chronic chest pain, hypothyroid, MCA infarct, and GERD, who presented to the emergency room from the [facility] after an episode of increased left facial droop, slurred speech, and increased left arm weakness that lasted approximately 15 minutes. Per the staff, the patient had left side facial droop and slurred speech that lasted approximately 15 minutes, and they were concerned that the patient was having another stroke, so they called the ambulance to have her brought to the emergency room for further evaluation. She was a code lal on arrival to the emergency room. She was seen in consultation by Neurology in the emergency room. Per the staff, there has been no recent illness and there are no sick contacts. She has not had any fevers. She does report yes to occasional chills, but denies any current chest pain, edema, cough, hemoptysis, or shortness of breath. Denies any nausea, vomiting, or diarrhea. She denies any blood in the urine. She does report pain with urination. Denies any visual complaints. She reports no to difficulty swallowing. Staff reports there has been no rashes, lesions, or open sores. Due to the concern of a TIA, we were asked to see and evaluate her for admission. PAST MEDICAL HISTORY: Significant for: 1. Seizures. 2. Intellectual delay. 3. Anemia. 4. Left hemiplegia. 5. Chronic chest pain. 6. Hypothyroidism. 7. MCA infarct. 8. GERD. PAST SURGICAL HISTORY: Tonsillectomy. HOME MEDICATIONS: 1. Lamotrigine 200 mg 1 tablet twice daily. 2. Tegretol 200 mg one and half tablets by mouth b.i.d. and half a tablet at bedtime. 3. Aspirin 81 mg p.o. daily. 4. Omeprazole 40 mg p.o. daily. 5. Norvasc 5 mg p.o. daily. 6. Atorvastatin 20 mg p.o. at bedtime. 7. MiraLAX 17 g p.o. daily p.r.n. 8. Lactobacillus 1 tab p.o. b.i.d. 9. Ferrous gluconate 325 mg p.o. b.i.d. 10. Restasis 1 drop to both eyes b.i.d. 11. Multivitamin 1 tab p.o. daily. 12. Boniva 150 mg p.o. monthly. 13. Cozaar 100 mg p.o. daily. 14. Levothyroxine 88 mcg p.o. daily. 15. Metoprolol 25 mg p.o. daily. ALLERGIES: To AMINOGLYCOSIDES, BACITRACIN, NEOMYCIN, POLYMYXIN B, and SULFA. FAMILY HISTORY: Unknown. SOCIAL HISTORY: She lives at the [facility]. There is no tobacco, alcohol, or illicit drug use. Surrogate decision maker is Ankush Peguero, greenhouse staff. She is a full code. REVIEW OF SYSTEMS: Patient does report occasional chills. Denies any fever, chest pain, edema, cough, hemoptysis or shortness of breath, nausea, vomiting, diarrhea. She does report pain with urination. Denies any hematuria, visual complaints, dysphagia, arthralgias, myalgias, rashes, lesions. She reports no when asked. PHYSICAL EXAMINATION GENERAL: Ms. Thorpe is an 82-year-old female. She is resting on the stretcher in the emergency room. She is alert to name and does answer questions with no, but does not actively participate in conversation. She does not appear to be in any acute distress. HEENT: Head is atraumatic, normocephalic. Eyes: EOMs are intact. Sclerae anicteric and not pale. Oral mucosa appeared to be moist. Tongue noted to have white patches. NECK: Supple. LUNGS: Diminished bilaterally. No wheezes, rales, or rhonchi. CARDIAC: S1, S2. Regular rate and rhythm. No murmurs, rubs, or gallops. ABDOMEN: Soft and nontender. Bowel sounds are present x4. EXTREMITIES: She does have a left footdrop, and left arm and hand are slightly contracted with limited range of motion. Pedal pulses are +2 bilaterally. She is nonambulatory at the [facility]. SKIN: Intact. LABORATORY DATA AND DIAGNOSTIC STUDIES: WBCs are 5.4, RBCs 3.13, hemoglobin 10.3, hematocrit was 31, platelet count was 261. INR was 1.00. Chemistries: Sodium 134, potassium 4.0, chloride 101, carbon dioxide was 27, anion gap was 6 , BUN was 27, creatinine 0.93, glucose was 112. Lactic acid 1.0. CK was 90. ASTs were 20, ALTs were 10, alkaline phosphatase was 84. Triglycerides 107, ___ ___ 152, LDL 77, HDL 53. TSH was 2.67. Urine color was yellow, cloudy, pH was 7.0, specific gravity 1.011. Urine protein, ketones, and blood were negative. Urine nitrites were positive. Urine bilirubin was negative. Urobilinogen was negative. Urine leukocyte esterase was 1+, wbc's were 2+, rbc' s were trace, bacteria was 1+. Carbamazepine was 8.6. She had a CT of the brain. Image quality was slightly degraded due to motion artifact as well as the patient's circumferential thickened calvarium. There is no definite extra-axial hemorrhage or definite mass effect. Appearance consistent with chronic microvascular disease. She had a chest x-ray, radiologist's impression: No active cardiopulmonary disease. She had an electrocardiogram which showed sinus rhythm at rate of 65. She had an MRI of the brain, atrophy and chronic ischemic white matter changes, no definite restriction of diffusion was noted. Study was limited due to motion artifact. ASSESSMENT AND PLAN: Ms. Thorpe is an 82-year-old female who presented to the emergency room from [facility] today due to a 15-minute episode of increased left facial droop, slurred speech, and left arm weakness. We were asked to see and evaluate her to rule out cerebrovascular accident. She will be admitted under observation for: 1. Left facial droop: I suspect this could be related to increased symptomatology due to her underlying urinary tract infection. The MRI was negative for any acute infarct. Given this, we will treat her with ceftriaxone 1 g IV. We will continue neuro checks q.2 hours. TSH and B12 level as per Neurology's recommendation. We will continue with Neurology's recommendations. We will continue her aspirin and statin therapy as previously prescribed. We will also order an EEG to rule out seizures. 2. Urinary tract infection: I will place her on ceftriaxone 1 g IV q.24 hours. Urine culture is currently pending. We will adjust the antibiotics as needed. 3. Seizures: She should continue on lamotrigine and Tegretol as previously prescribed. 4. Hypertension: She can continue on Norvasc as previously prescribed. 5. Gastroesophageal reflux disease: She should continue on Protonix 40 mg p.o. daily. 6. Hypothyroid: She will continue on Synthroid 88 mcg p.o. daily. 7. FEN: She can have a heart-healthy, decaf-okay diet, pureed with thin liquids. 8. DVT prophylaxis: I will place her on heparin subcutaneous 5000 units q.8 hours. 9. Code status: She is a full code. TIME SPENT: Time spent on this admission was approximately 60 minutes, greater than half that time was spent with the patient at the bedside reviewing events thus far to her hospitalization, performing my physical exam, and reviewing my plan of care. I have discussed this with my attending, Dr. Kasi Taylor; he is in agreement with my plan. VIVIAN MACKAY, PRODUCT DEVELOPMENT DIRECTOR [id number]/[facility] #: [id number] [place]
[2018-04-16] MEDS: carBAMazepine TAB(*) 200 MG PO SCH ×3 (06:23→19:31)
[2018-04-16] MEDS: Levothyroxine TAB* 88 MCG TAB PO SCH (06:23)
[2018-04-16] MEDS: Metoprolol Succinate XL TAB* 25 MG PO SCH (09:52)
[2018-04-16] MEDS: lamoTRIgine TAB(*) 100 MG PO SCH (09:52)
[2018-04-16] MEDS: Multivitamins/Minerals TAB PO SCH (09:53)
[2018-04-16] MEDS: amLODIPine TAB* 5 MG PO SCH (09:53)
[2018-04-16] MEDS: Ferrous Gluconate TAB* 324 MG TAB PO SCH ×2 (09:53→19:30)
[2018-04-16] MEDS: Docusate CAP* 100 MG PO SCH ×3 (09:53→19:31)
[2018-04-16] MEDS: Losartan TAB* 25 MG PO SCH (09:53)
[2018-04-16] MEDS: Pantoprazole TAB * 40 MG TAB PO SCH (09:53)
[2018-04-16] MEDS: Aspirin EC TAB* 81 MG TAB.EC PO SCH (09:53)
--- NOTE | 2018-04-16 16:24 | PN ---
Subjective Date of Service: 04/16/18 Interval History: Patient is lethargic this AM worse than baseline. Able to answer questions, is unable to provide information about previous neurologic baseline. Caregiver states that she may have a worse facial droop than previously. Patient denies CP , SOB, N/V, abdominal pain, diarrhea, or other pain. Patient complains of persistent dysuria. Family History: Unchanged from Admission Social History: Unchanged from Admission Past Medical History: Unchanged from Admission Objective Active Medications: Acetaminophen (Tylenol Tab*) 650 mg PO Q4H PRN PRN Reason: FEVER/PAIN Last Admin: 04/16/18 12:59 Dose: 650 mg Amlodipine Besylate (Norvasc Tab*) 5 mg PO DAILY [facility] Last Admin: 04/16/18 09:53 Dose: 5 mg Aspirin (Aspirin Ec Tab*) 81 mg PO DAILY [facility] Last Admin: 04/16/18 09:53 Dose: 81 mg Atorvastatin Calcium (Lipitor*) 20 mg PO BEDTIME [facility] Last Admin: 04/15/18 21:35 Dose: 20 mg Carbamazepine (Tegretol Tab(*)) 100 mg PO BEDTIME [facility] Last Admin: 04/15/18 21:35 Dose: 100 mg Carbamazepine (Tegretol Tab(*)) 300 mg PO 0700,1200 [facility] Last Admin: 04/16/18 12:50 Dose: 300 mg Cyanocobalamin (Vitamin B12 Tab*) 1,000 mcg PO DAILY [facility] Docusate Sodium (Colace Cap*) 100 mg PO TID [facility] Last Admin: 04/16/18 13:01 Dose: 100 mg Ferrous Gluconate (Fergon Tab*) 324 mg PO BID [facility] Last Admin: 04/16/18 09:53 Dose: 324 mg Heparin Sodium (Porcine) (Heparin Vial(*)) 5,000 units SUBCUT Q8HR [facility] Last Admin: 04/16/18 13:01 Dose: 5,000 units Ceftriaxone Sodium 1 gm/ (Sodium Chloride) 50 mls @ 200 mls/hr IVPB Q24H [facility] Last Admin: 04/15/18 17:19 Dose: 200 mls/hr Lamotrigine (Lamictal Tab(*)) 200 mg PO BID [facility] Last Admin: 04/16/18 09:52 Dose: 200 mg Levothyroxine Sodium (Synthroid Tab*) 88 mcg PO QAM@0600 [facility] Last Admin: 04/16/18 06:23 Dose: 88 mcg Losartan Potassium (Cozaar Tab*) 100 mg PO DAILY [facility] Last Admin: 04/16/18 09:53 Dose: 100 mg Metoprolol Succinate (Toprol Xl Tab*) 25 mg PO DAILY [facility] Last Admin: 04/16/18 09:52 Dose: 25 mg Multivitamins/Minerals (Theragran/Minerals Tab*) 1 tab PO DAILY [facility] Last Admin: 04/16/18 09:53 Dose: 1 tab Pantoprazole Sodium (Protonix Tab (Nf)) 40 mg PO QAM [facility] Last Admin: 04/16/18 09:53 Dose: 40 mg Polyethylene Glycol/Electrolytes (Miralax*) 17 gm PO DAILY PRN PRN Reason: CONSTIPATION Vital Signs - 8 hr 04/16/18 04/16/18 08:26 12:27 Temperature 97.7 F 97.8 F Pulse Rate 60 58 Respiratory 16 16 Rate Blood Pressure 149/68 138/58 (mmHg) O2 Sat by Pulse 96 97 Oximetry Oxygen Devices in Use Now: None Appearance: Patient is an 82yo female who appears older than stated age with a prominent facial droop and is sitting in the bed in [facility]. Eyes: No Scleral Icterus, PERRLA Ears/Nose/Mouth/Throat: NL Teeth, Lips, Gums, Clear Oropharnyx, Mucous Membranes Moist Neck: NL Appearance and Movements; NL JVP, Trachea Midline Respiratory: Symmetrical Chest Expansion and Respiratory Effort, Clear to Auscultation Cardiovascular: NL Sounds; No Murmurs; No JVD, RRR, No Edema Abdominal: NL Sounds; No Tenderness; No Distention, No Hepatosplenomegaly Lymphatic: No Cervical Adenopathy Extremities: No Edema, No Clubbing, Cyanosis, - - Left arm contracted. Skin: No Nodules or Sclerosis, - Neurological: - - A/Ox2. Left sided facial droop and arm weakness with contractures. Result Diagrams: 04/15/18 10:55 04/15/18 10:55 Microbiology and Other Data: Microbiology 04/15/18 11:41 Urine Culture - Preliminary Urine Escherichia Coli 04/15/18 17:20 Nasal Screen MRSA (PCR) - Final Nasal Mrsa Detected Assess/Plan/Problems-Billing Assessment: Patient is an 82yo female with a PMH for CVA with left sided weakness, MR, Frequent UTI, Seizures, Anemia, who presents with worsening left facial droop and arm weakness. Patient had a negative MRI and is having recurrent worsening and improvement in facial droop and fluctuating mental status. Patient was found to have significant discharges on EEG and is possibly having seizures with post-ictal weakness. - Patient Problems (1) Seizure disorder Current Visit: Yes Status: Acute Code(s): G40.909 - EPILEPSY, UNSP, NOT INTRACTABLE, WITHOUT STATUS EPILEPTICUS SNOMED Code(s): 702077891 Comment: - History of Seizures in setting of UTI - Lamictal level subtherapeutic, will increase slowly due to frequent UTI and breakthrough seizures. - No obvious abnormal movements. - F/U with Dr Ferguson outpatient. (2) UTI (urinary tract infection) Current Visit: Yes Status: Acute Comment: - Frequent UTI, growing 100K E. Coli, failed treatment with Keflex - Continue Ceftriaxone pending sentitivities - Possible candidate for suppressive therapy. (3) History of ischemic right MCA stroke Current Visit: Yes Status: Acute Code(s): Z86.73 - PRSNL HX OF TIA (TIA), AND CEREB INFRC W/O RESID DEFICITS SNOMED Code(s): 343990398 Comment: - No New stroke - Possible seizure focus - Continue secondary prevention - Dense Left hemiplegia. (4) Intellectual disability Current Visit: Yes Status: Acute Code(s): F79 - UNSPECIFIED INTELLECTUAL DISABILITIES SNOMED Code(s): 239905927 Comment: - Supportive care. (5) DVT prophylaxis Current Visit: Yes Status: Acute Code(s): MOS3920 - SNOMED Code(s): 278349030 Comment: - Heparin SubQ (6) Full code status Current Visit: Yes Status: Acute Code(s): Z78.9 - OTHER SPECIFIED HEALTH STATUS SNOMED Code(s): 670701094 Status and Disposition: Inpatient with weakness, UTI and possible breakthrough seizures, possible discharge tomorrow.
--- NOTE | 2018-04-16 16:34 | PN ---
Subjective Date of Service: 04/16/18 Length of Stay: 1 Days Neurology is following for increase slurred speech and facial droop. Interval History: She is resting comfortable in no acute distress. She is requesting ham sandwich for lunch. She was able to tolerate her oral intake. She still has a left facial droop and chronic slurred speech. Review of Systems: Denied CP, SOB, or palpitations. Family History: Unchanged from Admission Social History: Unchanged from Admission Past Medical History: Unchanged from Admission Objective Active Medications: Acetaminophen (Tylenol Tab*) 650 mg PO Q4H PRN PRN Reason: FEVER/PAIN Last Admin: 04/16/18 12:59 Dose: 650 mg Amlodipine Besylate (Norvasc Tab*) 5 mg PO DAILY [facility] Last Admin: 04/16/18 09:53 Dose: 5 mg Aspirin (Aspirin Ec Tab*) 81 mg PO DAILY [facility] Last Admin: 04/16/18 09:53 Dose: 81 mg Atorvastatin Calcium (Lipitor*) 20 mg PO BEDTIME [facility] Last Admin: 04/15/18 21:35 Dose: 20 mg Carbamazepine (Tegretol Tab(*)) 100 mg PO BEDTIME [facility] Last Admin: 04/15/18 21:35 Dose: 100 mg Carbamazepine (Tegretol Tab(*)) 300 mg PO 0700,1200 [facility] Last Admin: 04/16/18 12:50 Dose: 300 mg Cyanocobalamin (Vitamin B12 Tab*) 1,000 mcg PO DAILY [facility] Docusate Sodium (Colace Cap*) 100 mg PO TID [facility] Last Admin: 04/16/18 13:01 Dose: 100 mg Ferrous Gluconate (Fergon Tab*) 324 mg PO BID [facility] Last Admin: 04/16/18 09:53 Dose: 324 mg Heparin Sodium (Porcine) (Heparin Vial(*)) 5,000 units SUBCUT Q8HR [facility] Last Admin: 04/16/18 13:01 Dose: 5,000 units Ceftriaxone Sodium 1 gm/ (Sodium Chloride) 50 mls @ 200 mls/hr IVPB Q24H [facility] Last Admin: 04/15/18 17:19 Dose: 200 mls/hr Lamotrigine (Lamictal Tab(*)) 200 mg PO BID [facility] Last Admin: 04/16/18 09:52 Dose: 200 mg Levothyroxine Sodium (Synthroid Tab*) 88 mcg PO QAM@0600 [facility] Last Admin: 04/16/18 06:23 Dose: 88 mcg Losartan Potassium (Cozaar Tab*) 100 mg PO DAILY [facility] Last Admin: 04/16/18 09:53 Dose: 100 mg Metoprolol Succinate (Toprol Xl Tab*) 25 mg PO DAILY [facility] Last Admin: 04/16/18 09:52 Dose: 25 mg Multivitamins/Minerals (Theragran/Minerals Tab*) 1 tab PO DAILY [facility] Last Admin: 04/16/18 09:53 Dose: 1 tab Pantoprazole Sodium (Protonix Tab (Nf)) 40 mg PO QAM [facility] Last Admin: 04/16/18 09:53 Dose: 40 mg Polyethylene Glycol/Electrolytes (Miralax*) 17 gm PO DAILY PRN PRN Reason: CONSTIPATION Vital Signs 04/15/18 04/15/18 04/15/18 16:40 19:44 20:00 Temperature 98.4 F 98.3 F Pulse Rate 66 65 Respiratory 16 16 16 Rate Blood Pressure 187/79 160/74 (mmHg) O2 Sat by Pulse 100 99 99 Oximetry 04/16/18 04/16/18 04/16/18 00:00 00:25 03:56 Temperature 97.8 F 97.1 F Pulse Rate 69 66 65 Respiratory 16 16 Rate Blood Pressure 169/75 155/64 166/60 (mmHg) O2 Sat by Pulse 98 99 Oximetry 04/16/18 04/16/18 04/16/18 08:00 08:26 12:27 Temperature 97.7 F 97.8 F Pulse Rate 60 58 Respiratory 16 16 Rate Blood Pressure 149/68 138/58 (mmHg) O2 Sat by Pulse 96 96 97 Oximetry Intake and Output Last 24 Hours 04/14/18 04/15/18 04/16/18 04/17/18 06:59 06:59 06:59 06:59 Intake Total 73 360 Balance 73 360 Weight 124 lb 3.2 oz Intake: IV Fluids 15 IVPB 58 Oral 0 360 Other: Estimated Void Large # Bowel Movements 0 0 Estimated Stool Amount Small # Voids 1 2 Oxygen Devices in Use Now: None Neurology Exam: General: Ill appearing disabled female in no acute distress. She is loud and gets irritable with some providers. HEENT: Normocephalic/atraumatic, sclera anicteric, mucous membranes moist Neck: Supple Chest: Clear to auscultation bilaterally Cardiovascular: Regular rate and rhythm without murmurs, rubs, gallops Neurological Findings: Awake, alert to self, place, and year. She has moderate-severe dysarthria. Moderate psychmotor slowing. Speech: fluent without dysrhythmia, repetition intact Cranial Nerve: PERRL, prominent left facial droop. Motor: s/s: Mild left hemiparesis 4-/5. . Sensation: intact to LT/PP bilaterally. Deep Tendon Reflex:1+ throughout 0 at the ankles. Finger to nose intact bilaterally. Gait: wheelchair bound. Result Diagrams: 04/15/18 10:55 04/15/18 10:55 Additional Lab and Data: Carbamazepine 04/15/18 8.6 Lamotrigine 04/15/18: 4.9 Microbiology and Other Data: Microbiology 04/15/18 11:41 Urine Culture - Preliminary Urine Escherichia Coli 04/15/18 17:20 Nasal Screen MRSA (PCR) - Final Nasal Mrsa Detected Diagnostic Imaging: MRI brain without contrast 04/15/18: atrophy with chronic ischemic white matter changes. No definite restriction of diffusion. Severe cerebellar atrophy bilaterally. EEG: multifocal discharges with no seizures and diffuse background slowing. Assessment/Plan 1. Worsening dysarthria and left facial droop- due to recrudescence of focal neurological deficits related to UTI. Continue aspirin and atorvastatin therapy 2. UTI- Culture positive for E. Coli. On Rocephine. 3. Localization related epilepsy, refractory- Given the multifocal discharge on EEG, and the concern that she was maybe less responsive this morning, I suspect the patient may be having breakthrough, non-convulsive seizures. Recommendations: Increase lamotrigine to 200/250 mg for 2 weeks, then 200/300 mg thereafter. Continue carbamazepine. Follow-up with Dr. Ferguson in 4-6 weeks. Time spent: 25 minutes. Discussed with Will. Agreed with plan.
[2018-04-16] MEDS: cefTRIAXone(*) 1 GM in NS 0.9% 50 ML* 50 ML IVPB SCH (16:48)
--- NOTE | 2018-04-16 18:10 | EEG ---
ELECTROENCEPHALOGRAPHY: DATE OF STUDY: 04/15/18 DATE READ: 04/16/18 CLINICAL PROBLEM: Left facial droop and increase in drowsy state in a patient with history of locali zation-related epilepsy. This EEG was obtained to evaluate for epileptiform abnormalities or electro graphic seizures. TIMING OF THE RECORDIN:31 a.m. to 7:58 a.m. MEDICATIONS: 1. Amlodipine. 2. Aspirin. 3. Docusate. 4. Lamotrigine. 5. Losartan. 6. Metoprolol. 7. Theragran. 8. Pantoprazole. 9. Carbamazepine. 10. Heparin. 11. Ceftriaxone. 12. Atorvastatin. 13. Levothyroxine. 14. Acetaminophen. 15. MiraLAX. CLINICAL STATE: Awake and drowsiness. REPORT: The background consisted of a mixed frequency high amplitude slowing in the delta and theta range with some areas of retained organization and discernible anterior to posterior voltage gradient . There was a waking slow background rhythm of 7 Hz, which was symmetrical and showed normal reactiv ity. Attenuation of the occipital rhythm accompanied drowsiness. Throughout the recording, the most prominent features were high amplitude polymorphic 7-8 Hz theta sl owing seen throughout the recording with intermittent spike and slow wave epileptiform discharges in the right centroparietal region maximal at C4 and P4 as well as the left centroparietal region gray l at C3 and P3. There is also multifocal infarction maximally in the left frontal seen at FP1, F7 an d F3 as well as the right frontal at FP2, F4, and FP1. Occasional to frequent discharges seen throug hout the recording. There were no electrographic seizures. Photic stimulation and hyperventilation were not performed. CLINICAL IMPRESSION: This is an abnormal EEG due to the presence of multifocal epileptiform discharg es predominantly independent in bifrontal and bi- centroparietal regions with a slow posterior domina nt rhythm. These findings are suggestive of a mild global encephalopathy, which can be seen in the s etting of intellectual developmental delay and disability as well as multifocal infarct, which can be seen in patients with diffuse areas of epileptogenic potentials increasing the risk for breakthrough seizures. Clinical correlation is recommended. [id number]/[facility] #: [id number]
[2018-04-16] MEDS: Atorvastatin* 20 MG TAB PO SCH (19:26)
[2018-04-16] MEDS ORDERED: lamoTRIgine TAB(*) 100 MG PO SCH (21:00)
[2018-04-17] MEDS: Levothyroxine TAB* 88 MCG TAB PO SCH (05:01)
[2018-04-17] MEDS: Heparin VIAL(*) 5000 UNITS/ML VIAL (FIVE THOUSAND) SUBCUT SCH (05:03)
[2018-04-17 05:19] LABS: ABS Basophils 0.1 10^3/ul (0-0.2); ABS Eosinophils 0.4 10^3/ul (0-0.6); ABS Lymphocytes 1.4 10^3/ul (1.0-4.8); ABS Monocytes 0.8 10^3/ul (0-0.8); ABS Neutrophils 3.5 10^3/ul (1.5-7.7); ABS Nucleated RBC 0 10^3/ul; Eosinophil % 6.9 %; Hematocrit 30 % (35-47); Hemoglobin 9.9 g/dl (12.0-16.0); Lymphocyte % 23.5 %; Mean Corpuscular HGB Conc 33 g/dl (31-36); Mean Corpuscular Hemoglobin 32 pg (27-31); Mean Corpuscular Volume 97 fL (80-97); Mean Platelet Volume 6.5 fL (7.4-10.4); Nucleated Red Blood Cells % 0; Platelet Count 248 10^3/ul (150-450); Red Blood Count 3.08 10^6/ul (4.00-5.40); Red Cell Distribution Width 12 % (10.5-15); White Blood Count 6.2 10^3/ul (3.5-10.8)
[2018-04-17 05:39] LABS: BUN/Creatinine Ratio 24.5 (8-20); Calcium 8.6 mg/dL (8.6-10.3); EGFR Non-African American 54.6 (>60); Magnesium 2.2 mg/dL (1.9-2.7); Potassium 4.2 mmol/L (3.5-5.0)
[2018-04-17] MEDS: carBAMazepine TAB(*) 200 MG PO SCH (07:38)
[2018-04-17 07:52] VITALS: BP 154/55
[2018-04-17] MEDS ORDERED: Meropenem 1 GM PREMIX(*) 1 GM/50 ML BAG IV SCH (09:00)
[2018-04-17] MEDS ORDERED: DOXYcycline CAP(*) 100 MG PO SCH (09:00)
[2018-04-17] MEDS ORDERED: Cyanocobalamin TAB* 500 MCG PO SCH (09:00)
[2018-04-17] MEDS ORDERED: lamoTRIgine TAB(*) 100 MG PO SCH (09:00)
[2018-04-17] MEDS: Ferrous Gluconate TAB* 324 MG TAB PO SCH (09:01)
[2018-04-17] MEDS: Losartan TAB* 25 MG PO SCH (09:11)
[2018-04-17] MEDS: Multivitamins/Minerals TAB PO SCH (09:11)
[2018-04-17] MEDS: Aspirin EC TAB* 81 MG TAB.EC PO SCH (09:11)
[2018-04-17] MEDS: Docusate CAP* 100 MG PO SCH (09:11)
[2018-04-17] MEDS: Pantoprazole TAB * 40 MG TAB PO SCH (09:11)
[2018-04-17] MEDS: Metoprolol Succinate XL TAB* 25 MG PO SCH (09:11)
[2018-04-17] MEDS: amLODIPine TAB* 5 MG PO SCH (09:12)
--- NOTE | 2018-04-18 01:52 | DS ---
CC: Dr. Rapp; [facility]; Dr. Sudhir Ferguson * DISCHARGE SUMMARY: DATE OF ADMISSION: 04/15/18 DATE OF DISCHARGE: 04/17/18 PRIMARY CARE PROVIDER: Dr. Rapp. MY ATTENDING WHILE IN THE HOSPITAL: Dr. Bree Lara.* (DICTATED BY CARLOS FISCHER) OUTPATIENT NEUROLOGIST: Dr. Sudhir Ferguson. PRIMARY DISCHARGE DIAGNOSES: 1. Recrudescence of middle cerebral artery stroke in the setting of urinary tract infection. 2. Possible subclinical seizures. 3. Urinary tract infection. SECONDARY DISCHARGE DIAGNOSES: 1. Intellectual delay. 2. Anemia. 3. 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 4. Facial droop and slurred speech. 5. Chronic pain. 6. Hypothyroidism. 7. Gastroesophageal reflux disease. STUDIES DONE WHILE IN THE HOSPITAL: Abdomen x-ray from 04/15/18 read as no contraindication to MRI in the abdomen or pelvis. Orbit x-ray from 04/15/18 read as no orbital floor fracture seen. Brain CT from 04/15/18 read as image quality was slightly degraded by motion artifact as well as the patient's circumferentially thickened calvarium. There is no definite extra-axial hemorrhage or definite mass effect. Appearance is consistent with chronic microvascular disease. Chest x-ray from 04/15/18 read as no active cardiopulmonary disease. Brain MRI from 04/15/18 read as atrophy of chronic ischemic white matter change, no definite restriction or diffusion is noted. Study is limited due to motion artifact. Electroencephalogram: Clinical impression read as abnormal EEG with multifocal epileptiform discharges with bifrontal and bi-centroparietal regions with slow posterior dominant rhythm suggestive of mild encephalopathy with diffuse areas of epileptogenic potentials , increasing the risk for breakthrough seizures. MEDICATIONS AT DISCHARGE: 1. Lamotrigine 200 mg p.o. daily. 2. Docusate 100 mg p.o. t.i.d. 3. Cyclosporine ophthalmic emulsion 1 drop both eyes b.i.d. 4. Aspirin 81 mg p.o. daily. 5. Omeprazole 40 mg p.o. q.a.m. 6. Synthroid 88 mcg p.o. q.a.m. 7. Tylenol 1000 mg p.o. bedtime. 8. Fleet Enema One Enema OK q.4 days as needed. 9. MiraLAX 17 g p.o. daily as needed. 10. Magnesium hydroxide, aluminium hydroxide, simethicone, antacid liquid 15 mg p.o. q.4 hours as needed. 11. Tylenol 650 mg p.o. q.4 hours as needed. 12. Guaifenesin 5 mL p.o. q.4 hours as needed. 13. GenTeal Severe eye drops 0.3% both eyes t.i.d. as needed. 14. Amlodipine 5 mg p.o. daily. 15. Tegretol 100 mg p.o. bedtime. 16. mg p.o. b.i.d. 17. Atorvastatin 20 mg p.o. bedtime. 18. Lactobacillus acidophilus 1 tab p.o. b.i.d. 19. Multivitamin 1 tab p.o. daily. 20. Ibandronate 150 mg p.o. monthly. 21. Losartan 100 mg p.o. daily. 22. Metoprolol succinate 25 mg p.o. daily. 23. Vitamin B12 1000 mcg p.o. daily. 24. Doxycycline 100 mg p.o. b.i.d. x14. 25. Lamotrigine 250 mg p.o. nightly. Medications discontinued at discharge: 1. Ferrous gluconate 325 mg p.o. b.i.d., it was discontinued until the patient has essentially doxycycline course. 2. Pseudoephedrine 30 mg p.o. q.6 hours as needed was discontinued. 3. Cephalexin 250 mg p.o. daily was discontinued. HOSPITAL COURSE: This is a brief summary of the patient's presentation. For more details, please see the history and physical from Vivian Mackay NP on 04/15/18. In brief, the patient is an 82-year-old female with past medical history significant for the above, who at the [facility] had an episode of increased facial droop, slurred speech, and increased left arm weakness beyond her baseline; these are deficits that she has had previously with her CVA, the worsening lasted approximately 15 minutes. The patient came to the emergency department and was seen in consultation by Dr. Atul Cowan of Neurology, I believe this was likely recrudescence of previous stroke symptoms in the setting of UTI. The patient did have dysuria, occasional chills. The patient had no sick contacts. The patient was admitted to the hospital and had a negative MRI as above. The patient had an EEG, which was read as above. The patient while in the hospital had another episode of decreased responsiveness, increased facial droop, increased weakness, and disorientation. Given the clinical picture and the EEG, it was not excluded the patient was having subclinical seizures causing Yogesh's paralysis with a focus being her previous MCA infarct. The patient's Lamictal was increased as above by 50 mg daily; this change was discussed with the patient's outpatient neurologist, Dr. Sudhir Ferguson. The patient had positive urinalysis for ESBL E. coli. The patient was initially started on ceftriaxone for her UTI, but was initially switched to meropenem, of which she got 1 dose and then doxycycline after sensitivities were obtained. 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 The patient has anemia at her baseline, chronic kidney disease at her baseline, and no other laboratory abnormalities. The patient's lamotrigine level was 4.9, which is a low level for therapy. The patient was stable and therefore discharged on 04/17/18. PHYSICAL EXAMINATION ON THE DAY OF DISCHARGE: General: The patient is an 82- year-old female, who appears older than stated age, sitting comfortably in bed, in no acute distress. Vital signs at the time of discharge: Temperature 97.6, pulse rate 64, respiratory rate 16, oxygen saturation 98% on room air, blood pressure 154/55. HEENT: Head normocephalic, atraumatic. Sclerae anicteric. No conjunctival injection. Nasal mucosa moist. Oral mucosa moist. No pharyngeal erythema, discharge, or exudate. Neck: Supple, nontender. No lymphadenopathy. No carotid bruits. No JVD. Cardiac: Regular rate and rhythm. No clicks, murmurs, gallops, or rubs. Pulses are 2+ in the bilateral dorsalis pedis, posterior tibialis, and radial areas. Skin: Clean, dry, and intact. No rash. Abdomen: Soft, nontender, nondistended. Bowel sounds present and normoactive in all 4 quadrants. No hepatosplenomegaly. No abdominal bruits auscultated. No hepatojugular reflux. Genitourinary: No suprapubic or CVA tenderness. Skin: Clean, dry, and intact. No rash. Neuro: The patient has a left side facial droop. The patient has contractures and weakness of her left arm with minimal movement as well as in her left leg. The patient has decreased sensation to light touch in these areas as well. The patient is alert and oriented to self, place, but not to time. The patient is unable to cooperative with further neurological testing. DISCHARGE PLAN: The patient will be discharged back to [facility]. The patient with a Josie lift at baseline. The patient's functional status appears to also be at her baseline. The patient has had her Lamictal increased 50 mg daily now and will have it increased to 200 mg and 300 at night in 2 weeks. The patient is to follow up with Dr. Sudhir Ferguson in 4 to 6 weeks for monitoring of her seizures and clinical status. The patient will continue secondary prevention of stroke with statins and aspirin. The patient will continue with her iron after she is done with doxycycline therapy for 1 week. The patient's pseudoephedrine was discontinued as it is predisposed to seizures. The patient's blood pressure was slightly elevated while in the hospital; however, she was frequently agitated. The patient will continue on her home antihypertensives. The patient should resume her previous diet that has been corrected for her at [facility]. The patient should engage in activities as tolerated, though she has been bed and chair-bound. The patient should return to the hospital for significantly worsening deficits, frequent breakthrough seizures, or other alarming symptoms. There should be consideration given to putting the patient on appropriate chronic suppressive therapy for her UTIs given the frequency of which she has seizures when infected. TIME SPENT: Approximately 60 minutes were spent on the discharge of this patient, 30 of which were spent [id number] with the patient obtaining history and physical and discussing treatment plan. CARLOS FISCHER [id number]/CPS #: [id number] B[place]
== END 2018-04-17 11:00 | disposition home or self-care (01) ==
LOC: ED 10:36 → MEDTELE 14:55
PROVIDERS: ADMIT Student in an Organized Health Care Education/Training Program; ATTEND Student in an Organized Health Care Education/Training Program
DX: I69.398 Other sequelae of cerebral infarction (principal); I69.354 Hemiplegia and hemiparesis following cerebral infarction affecting left non-dominant side; N39.0 Urinary tract infection, site not specified; R41.83 Borderline intellectual functioning; D64.9 Anemia, unspecified; R29.810 Facial weakness; G89.29 Other chronic pain; E03.9 Hypothyroidism, unspecified; K21.9 Gastro-esophageal reflux disease without esophagitis
CPT/HCPCS: 36415; 70030; 70450; 70551; 71045; 74018; 80048; 80053; 80061; 80156; 80175; 81003; 81015; 82550; 82553; 82607; 83605; 83735; 84443; 84484; 85025; 85610; 85730; 87077; 87086; 87186; 87641; 93005; 95819; 96372; 96374; 99285; A9270-GY; G0378; J0696; J1644

== ENCOUNTER 2018-08-10 10:15 | Emergency (ER) | payer MEDICARE, MEDICAID ==
--- NOTE | 2018-08-10 10:41 | ED ---
Complex/Multi-Sys Presentation - HPI Summary HPI Summary: Pt is an 82 y/o F presenting to the ED with a chief complaint of R breast pain. LEVEL 5 CAVEAT: Unable to obtain full hx and physical from patient d/t baseline altered mental status. Per the pts caregiver, the pt is from the [facility] , has had intermittent confusion for the past couple of weeks as well as hx of ESBL. The pt herself c/o R breast pain. - History Of Current Complaint Chief Complaint: EDUrogenitalProblems Hx Obtained From: Family/[employer] Admin - supplemental manager Hx From Patient Unobtainable Due To: Altered Mental Status Severity Currently: Mild Severity Initially: Mild Associated Signs And Symptoms: Positive: Confusion, Other - R breast pain - Allergies/Home Medications Allergies/Adverse Reactions: Allergies Allergy/AdvReac Type Severity Reaction Status Date / Time Aminoglycosides Allergy Unknown Verified 04/15/18 12:25 Reaction Details bacitracin Allergy Unknown Verified 04/15/18 12:25 Reaction Details neomycin Allergy Unknown Verified 04/15/18 12:25 Reaction Details polymyxin B Allergy Unknown Verified 04/15/18 12:25 Reaction Details Sulfa (Sulfonamide Allergy Unknown Verified 04/15/18 12:25 Antibiotics) Reaction Details Home Medications: Home Medications Bisacodyl SUPP* [Dulcolax Supp*] 10 mg AK Q3D PRN 08/10/18 [History Confirmed ] Cyanocobalamin TAB* [Vitamin B12 TAB*] 2,000 mcg PO DAILY 08/10/18 [History Confirmed 08/10/18] Ferrous Gluconate TAB* [Fergon TAB*] 325 mg PO BID 08/10/18 [History Confirmed 08/10/18] Nitrofurantoin Macrocrystals* [Macrodantin 50 MG*] 50 mg PO DAILY WITH MEAL 10/22 [History Confirmed 08/10/18] Pseudoephedrine TAB* [Sudafed TAB*] 60 mg PO Q6H PRN 08/10/18 [History Confirmed 08/10/18] carBAMazepine TAB(*) [Tegretol TAB(*)] 100 mg PO BEDTIME 08/10/18 [History Confirmed 08/10/18] lamoTRIgine TAB(*) [Lamictal TAB(*)] 200 mg PO QAM 08/10/18 [History Confirmed 08/10/18] lamoTRIgine TAB(*) [Lamictal TAB(*)] 300 mg PO BEDTIME 08/10/18 [History Confirmed 08/10/18] PMH/Surg Hx/FS Hx/Imm Hx Previously Healthy: Yes Endocrine/Hematology History: Reports: Hx Thyroid Disease - Levothyroxine Cardiovascular History: Reports: Hx Hypertension Denies: Hx Pacemaker/ICD Sensory History: Denies: Hx Contacts or Glasses, Hx Hearing Aid Opthamlomology History: Denies: Hx Contacts or Glasses Psychiatric History: Denies: Hx Panic Disorder - Surgical History Surgery Procedure, Year, and Place: hysterectomy Infectious Disease History: Yes Infectious Disease History: Denies: Traveled Outside the [place] in Last 30 Days - Family History Known Family History: Positive: Other - LEVEL 5 CAVEAT due to MR, DD staff does not know information - Social History Alcohol Use: None Hx Substance Use: No Substance Use Type: Reports: None Hx Tobacco Use: No Smoking Status (MU): Never Smoked Tobacco Review of Systems Positive: Other - R breast pain Neurological: Other - confusion All Other Systems Reviewed And Are Negative: No Physical Exam - Summary Physical Exam Summary: Gen.: The patient is alert and oriented, unable to participate in conversation. She does not appear to be in any distress. HEENT: the head is atraumatic, normocephalic, eyes equal and reactive to light, oral mucosa appears to be slightly dry., Tongue is midline. Neck : supple, no lymphadenopathy. Lungs: Diminished breath sounds bilaterally. No wheezes,or rhonchi. Cardiac: S1 and S2 present, regular rate and rhythm, no murmurs, no rubs or gallops. Abdomen: Soft is nontender positive bowel sounds. Extremities: She does have a left foot drop, and left arm and hand is slightly contracted with limited range of motion. Pedal pulses 2+ bilaterally. She is not ambulatory. Skin: Intact. Triage Information Reviewed: Yes Vital Signs On Initial Exam: Initial Vitals Temp Pulse Resp BP Pulse Ox 96.5 F 67 18 132/66 96 08/10/18 10:21 08/10/18 10:21 08/10/18 10:21 08/10/18 10:21 08/10/18 10:21 Vital Signs Reviewed: Yes Completion Of Physical Exam Limited Due To: Level 5 Diagnostics - Vital Signs Vital Signs Temp Pulse Resp BP Pulse Ox 08/10/18 10:21 96.5 F 67 18 132/66 96 - Laboratory Result Diagrams: 08/10/18 10:58 08/10/18 10:58 Lab Statement: Any lab studies that have been ordered have been reviewed, and results considered in the medical decision making process. Complex Multi-Symp Course/Dx Assessment/Plan: This patient is an 82-year-old female who presents to the emergency department transfer from the [facility] requesting to have a urinary catheter and cultures since they think that the patient has a urinary tract infection. The patient is unable to give history. Past medical history significant for seizures, intellectual delay, anemia, left hemiplegia, chronic chest pain, hypothyroidism, CVA ischemic infarct around the MCA area, GERD. In the physical exam the patient is sitting strapped in a wheelchair. Vital signs are stable, the patient is having fever, heart rate is 67, respiratory rate 16, O2 sat 96, blood pressure 132/66. Blood work without any significant abnormality except for chronic anemia, sodium 133, BUN 32, calcium is 8.5 which is her baseline. Urinalysis positive for UTI. Looking at the microbiology for the past urine is the patient is susceptible to Bactrim. Therefore the patient will be given one pill in the ED and discharged home with a prescription for Bactrim. Patient was discharged home with a caregiver and follow with the primary care physician. - Diagnoses Provider Diagnoses: UTI (urinary tract infection) Discharge - Sign-Out/Discharge Documenting (check all that apply): Patient Departure Patient Received Moderate/Deep Sedation with Procedure: No - Discharge Plan Condition: Stable Disposition: HOME Prescriptions: Sulfamethox/Trimethoprim DS* [Bactrim DS 800/160 TAB*] 1 tab PO BID #14 tab Referrals: Herber Rapp MD [Primary Care Provider] - Additional Instructions: Please take your prescribed medications as instructed. Follow up with your primary care provider within the next 2-3 days. Return to the emergency department with any new or worsening symptoms. - Billing Disposition and Condition Condition: STABLE Disposition: Home - Attestation Statements Document Initiated by Scribe: Yes Documenting Scribe: Emperatriz Ko Provider For Whom Scribe is Documenting (Include Credential): Wilton Nance MD. Scribe Attestation: IEmperatriz, scribed for Wilton Nance MD. on 08/10/18 at 2052. Scribe Documentation Reviewed: Yes Provider Attestation: The documentation as recorded by the scribe, Emperatriz Ko accurately reflects the service I personally performed and the decisions made by me, Wilton Nance MD. Status of Scribe Document: Viewed
[2018-08-10 11:09] LABS: ABS Eosinophils 0.3 10^3/ul (0-0.6); ABS Lymphocytes 0.8 10^3/ul (1.0-4.8); ABS Monocytes 0.9 10^3/ul (0-0.8); ABS Neutrophils 5.9 10^3/ul (1.5-7.7); Eosinophil % 4.1 %; Hematocrit 30 % (35-47); Hemoglobin 10.3 g/dL (12.0-16.0); Lymphocyte % 10.6 %; Mean Corpuscular HGB Conc 34 g/dL (31-36); Mean Corpuscular Hemoglobin 33 pg (27-31); Mean Corpuscular Volume 97 fL (80-97); Mean Platelet Volume 6.5 fL (7.4-10.4); Platelet Count 270 10^3/uL (150-450); Red Blood Count 3.11 10^6 /uL (3.70-4.87); Red Cell Distribution Width 13 % (10.5-15); White Blood Count 7.9 10^3/uL (3.5-10.8)
[2018-08-10 11:28] LABS: Albumin 3.7 g/dL (3.2-5.2); Albumin/Globulin Ratio 1.4 (1-3); BUN/Creatinine Ratio 35.6 (8-20); C Reactive Protein 1.26 mg/L (<8.01); Calcium 8.5 mg/dL (8.6-10.3); EGFR African American 72.9 (>60); EGFR Non-African American 60.2 (>60); Globulin 2.7 g/dL (2-4); Potassium 4.2 mmol/L (3.5-5.0); Total Bilirubin 0.2 mg/dL (0.2-1.0); Total Protein 6.4 g/dL (6.4-8.9)
[2018-08-10 12:06] LABS: Urine Appearance Turbid; Urine Bacteria 3+ (Absent); Urine Bilirubin Negative (Negative); Urine Blood Negative (Negative); Urine Color Yellow; Urine Glucose Negative (Negative); Urine Ketones Negative (Negative); Urine Nitrite Positive (Negative); Urine Protein 2+(100 mg/dL) (Negative); Urine Red Blood Cell Absent (Absent); Urine Specific Gravity 1.016 (1.010-1.030); Urine Urobilinogen Negative (Negative); Urine White Blood Cell 3+(>20/hpf) (Absent)
[2018-08-10] MEDS ORDERED: Sulfamethox/Trimethoprim DS 800/160* TAB PO ONE (12:54)
[2018-08-10 13:34] VITALS: BP 160/92
--- NOTE | 2018-08-12 05:50 | PN ---
Progress Note - Progress Note Date of Service: 08/10/18 Note: Urine culture preliminary grew: 100,000 Patient was placed on Bactrim prior to discharge Nothing further this time
== END 2018-08-10 13:33 | disposition home or self-care (01) ==
LOC: ED 10:15
DX: N39.0 Urinary tract infection, site not specified (principal); N64.4 Mastodynia; I10 Essential (primary) hypertension; E07.9 Disorder of thyroid, unspecified
CPT/HCPCS: 36415; 80053; 81003; 81015; 83605; 83690; 85025; 86140; 87077; 87086; 87186; 99283; A9270-GY

== ENCOUNTER → 2018-09-09 13:47 | Emergency (ER) | payer MEDICARE, MEDICAID ==
[2018-09-09 14:01] VITALS: BP 137/70
[2018-09-09 14:47] LABS: ABS Basophils 0.1 10^3/ul (0-0.2); ABS Eosinophils 0.3 10^3/ul (0-0.6); ABS Monocytes 0.7 10^3/ul (0-0.8); ABS Neutrophils 3.3 10^3/ul (1.5-7.7); Eosinophil % 5.1 %; Hematocrit 33 % (35-47); Hemoglobin 11.4 g/dL (12.0-16.0); Mean Corpuscular HGB Conc 35 g/dL (31-36); Mean Corpuscular Hemoglobin 33 pg (27-31); Mean Corpuscular Volume 95 fL (80-97); Mean Platelet Volume 6.3 fL (7.4-10.4); Platelet Count 273 10^3/uL (150-450); Red Blood Count 3.45 10^6 /uL (3.70-4.87); Red Cell Distribution Width 12 % (10-15); White Blood Count 5.4 10^3/uL (3.5-10.8)
[2018-09-09 15:13] LABS: Potassium 4.7 mmol/L (3.5-5.0); Total Bilirubin 0.3 mg/dL (0.2-1.0)
[2018-09-09 15:19] LABS: Albumin/Globulin Ratio 1.4 (1-3); EGFR African American 70.9 (>60); EGFR Non-African American 58.6 (>60); Globulin 2.9 g/dL (2-4); Total Protein 6.9 g/dL (6.4-8.9)
--- NOTE | 2018-09-09 16:42 | ED ---
Complex/Multi-Sys Presentation - HPI Summary HPI Summary: The patient is an 83 year old F presenting to [facility] with a chief complaint of diet change since yesterday. Pt is unresponsive but is in no apparent distress. Her daughter provided the information. She stated that the pt has not eaten or drank anything in 24 hours [employer]. She stated that the pt has been urinating with the last urination today but has not had a BM. Symptoms aggravated by nothing. Symptoms alleviated by nothing. A full HPI is unobtainable due to the fact that the Pt is a level 5 caveat due to altered mental status. - History Of Current Complaint Chief Complaint: EDGeneral Time Seen by Provider: 09/09/18 15:47 Hx Obtained From: Family/Mental Health Assistant - daughter Hx From Patient Unobtainable Due To: Altered Mental Status - Level 5 caveat Timing: Days - 1 Severity Currently: None Associated Signs And Symptoms: Positive: Other - decreased appetite - Allergies/Home Medications Allergies/Adverse Reactions: Allergies Allergy/AdvReac Type Severity Reaction Status Date / Time Aminoglycosides Allergy Unknown Verified 09/09/18 14:01 Reaction Details bacitracin Allergy Unknown Verified 09/09/18 14:01 Reaction Details neomycin Allergy Unknown Verified 09/09/18 14:01 Reaction Details polymyxin B Allergy Unknown Verified 09/09/18 14:01 Reaction Details Sulfa (Sulfonamide Allergy Unknown Verified 09/09/18 14:01 Antibiotics) Reaction Details Home Medications: Home Medications Acetaminophen SUPP* [Tylenol Supp*] 650 mg ME Q4H PRN 09/09/18 [History Confirmed 09/09/18] Acetaminophen TAB* [Tylenol TAB*] 650 mg PO Q4H PRN 09/09/18 [History Confirmed 09/09/18] Acetaminophen [Acetaminophen Extra Strength] 1,000 mg PO QPM 09/09/18 [History Confirmed 09/09/18] Aspirin EC TAB* [Ecotrin EC Low Dose 81 MG*] 81 mg PO DAILY 09/09/18 [History Confirmed 09/09/18] Atorvastatin* [Lipitor*] 20 mg PO BEDTIME 09/09/18 [History Confirmed 09/09/18] Bisacodyl [Biscolax] 10 mg ME Q3D PRN 09/09/18 [History Confirmed 09/09/18] Cyanocobalamin TAB* [Vitamin B12 TAB*] 1,000 mcg PO DAILY 09/09/18 [History Confirmed 09/09/18] Cyclosporine 0.05% OPHTH (NF) [Restasis 0.05% OPHTH] 1 drop BOTH EYES BID [History Confirmed 09/09/18] Docusate CAP* [Colace Cap*] 100 mg PO TID 09/09/18 [History Confirmed 09/09/18] Ferrous Gluconate TAB* [Fergon TAB*] 325 mg PO BID 09/09/18 [History Confirmed 09/09/18] Hypromellose [Genteal Severe] 0.3 % BOTH EYES TID 09/09/18 [History Confirmed ] Ibandronate TAB(NF) [Boniva(NF)] 150 mg PO MONTHLY 09/09/18 [History Confirmed 09/09/18] L. Acidophilus/Pectin, [place] [Acidophilus Capsule] 1 cap PO BID 09/09/18 [ History Confirmed 09/09/18] Levothyroxine TAB* [Synthroid TAB*] 88 mcg PO QAM 09/09/18 [History Confirmed ] Losartan TAB* [Cozaar TAB*] 100 mg PO DAILY 09/09/18 [History Confirmed 09/09/18 ] Mag Hydrox/Aluminum Hyd/Simeth [Antacid M Liquid] 15 ml PO Q4HR PRN 09/09/18 [ History Confirmed 09/09/18] Metoprolol Succinate XL TAB* [Toprol XL TAB*] 25 mg PO DAILY 09/09/18 [History Confirmed 09/09/18] Multivitamins/Minerals TAB* [Theragran/minerals TAB*] 1 tab PO DAILY 09/09/18 [ History Confirmed 09/09/18] Nitrofurantoin Macrocrystals* [Macrodantin 50 MG*] 50 mg PO DAILY 09/09/18 [ History Confirmed 09/09/18] Omeprazole (Nf) [Prilosec (NF)] 40 mg PO QAM 09/09/18 [History Confirmed ] Polyethylene Glycol 3350* [Miralax*] 17 gm PO DAILY 09/09/18 [History Confirmed 09/09/18] Pseudoephedrine HCl [Sudafed] 30 mg PO Q6HR PRN 09/09/18 [History Confirmed 09/22] Sodium Phosphate,[place]-Dibasic [Enema Ready To Use] 133 ml ME Q4D PRN 09/09/18 [ History Confirmed 09/09/18] Transparent Dressing [Tegaderm] 1 patch TOPICAL Q3D 09/09/18 [History Confirmed 09/09/18] amLODIPine TAB* [Norvasc 5 mg TAB*] 5 mg PO DAILY 09/09/18 [History Confirmed ] carBAMazepine TAB(*) [TEGretol TAB(*)] 100 mg PO BEDTIME 09/09/18 [History Confirmed 09/09/18] carBAMazepine TAB(*) [TEGretol TAB(*)] 300 mg PO BID 09/09/18 [History Confirmed 09/09/18] guaiFENesin LIQ* [Robitussin*] 5 mg PO Q4H PRN 09/09/18 [History Confirmed 09/09] lamoTRIgine TAB(*) [LaMICtal TAB(*)] 200 mg PO QAM 09/09/18 [History Confirmed 09/09/18] lamoTRIgine TAB(*) [LaMICtal TAB(*)] 300 mg PO BEDTIME 09/09/18 [History Confirmed 09/09/18] PMH/Surg Hx/FS Hx/Imm Hx Previously Healthy: No Endocrine/Hematology History: Reports: Hx Thyroid Disease - Levothyroxine Cardiovascular History: Reports: Hx Hypertension Denies: Hx Pacemaker/ICD Sensory History: Denies: Hx Contacts or Glasses, Hx Hearing Aid Opthamlomology History: Denies: Hx Contacts or Glasses Psychiatric History: Denies: Hx Panic Disorder - Surgical History Surgery Procedure, Year, and Place: hysterectomy Infectious Disease History: Yes Infectious Disease History: Denies: Traveled Outside the [place] in Last 30 Days - Family History Known Family History: Positive: Other - LEVEL 5 CAVEAT due to MR, DD staff does not know information - Social History Alcohol Use: None Hx Substance Use: No Substance Use Type: Reports: None Hx Tobacco Use: No Smoking Status (MU): Never Smoked Tobacco Review of Systems - ROS Summary Review of Systems Summary: A full ROS is unobtainable due to the pt being a level 5 caveat due to AMS. Neurological: Other - decreased appetite All Other Systems Reviewed And Are Negative: No Physical Exam - Summary Physical Exam Summary: A full physical is unobtainable due to the pt being a level 5 caveat due to AMS. Appearance: The patient is well-nourished in no acute distress and in no acute pain. Skin: The skin is warm and dry and skin color reflects adequate perfusion. HEENT: The head is normocephalic and atraumatic. The pupils are equal and reactive. The conjunctivae are clear and without drainage. Nares are patent and without drainage. Mouth reveals moist mucous membranes and the throat is without erythema and exudate. The external ears are intact. The ear canals are patent and without drainage. The tympanic membranes are intact. Neck: The neck is supple with full range of motion and non-tender. There are no carotid bruits. There is no neck vein distension. Respiratory: Chest is non-tender. Lungs are clear to auscultation and breath sounds are symmetrical and equal. Cardiovascular: Heart is regular rate and rhythm. There is no murmur or rub auscultated. There is no peripheral edema and pulses are symmetrical and equal. Abdomen: The abdomen is soft and non-tender. There are normal bowel sounds heard in all four quadrants and there is no organomegaly palpated. Musculoskeletal: There is no back tenderness noted. Extremities are non-tender with full range of motion. There is good capillary refill. There is no peripheral edema or calf tenderness elicited. Neurological: Patient is alert and oriented to person, place and time. The patient has symmetrical motor strength in all four extremities. Cranial nerves are grossly intact. Deep tendon reflexes are symmetrical and equal in all four extremities. Psychiatric: The patient has an appropriate affect and does not exhibit any anxiety or depression. Triage Information Reviewed: Yes Vital Signs On Initial Exam: Initial Vitals Temp Pulse Resp BP Pulse Ox 97.8 F 60 18 137/70 97 09/09/18 13:50 09/09/18 13:50 09/09/18 13:50 09/09/18 13:50 09/09/18 13:50 Vital Signs Reviewed: Yes Diagnostics - Vital Signs Vital Signs Temp Pulse Resp BP Pulse Ox 09/09/18 13:50 97.8 F 60 18 137/70 97 - Laboratory Lab Results: Lab Results 09/09/18 09/09/18 09/09/18 Range/Units 14:37 14:37 14:37 WBC 5.4 (3.5-10.8) 10^3/uL RBC 3.45 L (3.70-4.87) 10^6 /uL Hgb 11.4 L (12.0-16.0) g/dL Hct 33 L (35-47) % MCV 95 (80-97) fL MCH 33 H (27-31) pg MCHC 35 (31-36) g/dL RDW 12 (10-15) % Plt Count 273 (150-450) 10^3/uL MPV 6.3 L (7.4-10.4) fL Neut % (Auto) 61.2 % Lymph % (Auto) 19.0 % [place] % (Auto) 12.1 % Eos % (Auto) 5.1 % Baso % (Auto) 2.6 % Absolute Neuts (auto) 3.3 (1.5-7.7) 10^3/ul Absolute Lymphs (auto) 1.0 (1.0-4.8) 10^3/ul Absolute Monos (auto) 0.7 (0-0.8) 10^3/ul Absolute Eos (auto) 0.3 (0-0.6) 10^3/ul Absolute Basos (auto) 0.1 (0-0.2) 10^3/ul Absolute Nucleated RBC 0.0 10^3/ul Nucleated RBC % 0.0 INR (Anticoag Therapy) 1.00 (0.82-1.09) APTT 34.0 (26.0-38.0) seconds Sodium 126 L (135-145) mmol/L Potassium 4.7 (3.5-5.0) mmol/L Chloride 92 L (101-111) mmol/L Carbon Dioxide 28 (22-32) mmol/L Anion Gap 6 (2-11) mmol/L BUN 23 (6-24) mg/dL Creatinine 0.92 (0.51-0.95) mg/dL Est GFR ( Amer) 70.9 (>60) Est GFR (Non-Af Amer) 58.6 (>60) BUN/Creatinine Ratio 25.0 H (8-20) Glucose 92 (70-100) mg/dL Lactic Acid (0.5-2.0) mmol/L Calcium 9.0 (8.6-10.3) mg/dL Total Bilirubin 0.30 (0.2-1.0) mg/dL AST 21 (13-39) U/L ALT 12 (7-52) U/L Alkaline Phosphatase 90 (34-104) U/L Troponin I 0.00 (<0.04) ng/mL Total Protein 6.9 (6.4-8.9) g/dL Albumin 4.0 (3.2-5.2) g/dL Globulin 2.9 (2-4) g/dL Albumin/Globulin Ratio 1.4 (1-3) 09/09/18 Range/Units 14:37 WBC (3.5-10.8) 10^3/uL RBC (3.70-4.87) 10^6 /uL Hgb (12.0-16.0) g/dL Hct (35-47) % MCV (80-97) fL MCH (27-31) pg MCHC (31-36) g/dL RDW (10-15) % Plt Count (150-450) 10^3/uL MPV (7.4-10.4) fL Neut % (Auto) % Lymph % (Auto) % [place] % (Auto) % Eos % (Auto) % Baso % (Auto) % Absolute Neuts (auto) (1.5-7.7) 10^3/ul Absolute Lymphs (auto) (1.0-4.8) 10^3/ul Absolute Monos (auto) (0-0.8) 10^3/ul Absolute Eos (auto) (0-0.6) 10^3/ul Absolute Basos (auto) (0-0.2) 10^3/ul Absolute Nucleated RBC 10^3/ul Nucleated RBC % INR (Anticoag Therapy) (0.82-1.09) APTT (26.0-38.0) seconds Sodium (135-145) mmol/L Potassium (3.5-5.0) mmol/L Chloride (101-111) mmol/L Carbon Dioxide (22-32) mmol/L Anion Gap (2-11) mmol/L BUN (6-24) mg/dL Creatinine (0.51-0.95) mg/dL Est GFR ( Amer) (>60) Est GFR (Non-Af Amer) (>60) BUN/Creatinine Ratio (8-20) Glucose (70-100) mg/dL Lactic Acid 0.7 (0.5-2.0) mmol/L Calcium (8.6-10.3) mg/dL Total Bilirubin (0.2-1.0) mg/dL AST (13-39) U/L ALT (7-52) U/L Alkaline Phosphatase (34-104) U/L Troponin I (<0.04) ng/mL Total Protein (6.4-8.9) g/dL Albumin (3.2-5.2) g/dL Globulin (2-4) g/dL Albumin/Globulin Ratio (1-3) Result Diagrams: 09/09/18 14:37 09/09/18 14:37 Lab Statement: Any lab studies that have been ordered have been reviewed, and results considered in the medical decision making process. - Radiology CXR Radiology Interpretation Completed By: Radiologist Summary of Radiographic Findings: No evidence for acute intrathoracic disease. ED Physician has reviewed this report. Re-Evaluation - Re-Evaluation Second Eval Re-Evaluation Time: 18:37 Change: Improved Comment: Pt was informed on results from the labs. Pt was instructed to return the pt to the ED with any new or worsening symptoms and to follow up with her PCP in 2-3 days. Complex Multi-Symp Course/Dx Course Of Treatment: Ms. Thorpe is of course difficult to evaluate. I did not find any obvious reason for her malaise and anorexia. I recommended close observation as this may be an early process that hasn't declared itself yet. - Diagnoses Provider Diagnoses: Malaise Discharge - Sign-Out/Discharge Documenting (check all that apply): Patient Departure - discharge Patient Received Moderate/Deep Sedation with Procedure: No - Discharge Plan Condition: Stable Disposition: HOME Patient Education Materials: Weakness (ED), Fatigue (ED) Referrals: Herber Rapp MD [Primary Care Provider] - Additional Instructions: Follow up with your primary care physician in 2-3 days. Return to the emergency department with any new or worsening symptoms. - Billing Disposition and Condition Condition: STABLE Disposition: Home - Attestation Statements Document Initiated by Scribe: Yes Documenting Scribe: Pj Will Provider For Whom Scribe is Documenting (Include Credential): Bebo Fu MD Scribe Attestation: IPj, scribed for Bebo Fu MD on 09/09/18 at 1849. Scribe Documentation Reviewed: Yes Provider Attestation: The documentation as recorded by the scribe, Pj Will accurately reflects the service I personally performed and the decisions made by me, Bebo Fu MD Status of Scribe Document: Viewed
[2018-09-09 18:22] LABS: Urine Appearance Cloudy; Urine Bacteria Absent (Absent); Urine Bilirubin Negative (Negative); Urine Blood Negative (Negative); Urine Color Yellow; Urine Glucose Negative (Negative); Urine Ketones Negative (Negative); Urine Nitrite Negative (Negative); Urine Protein 1+(30 mg/dL) (Negative); Urine Red Blood Cell 1+(3-5/hpf) (Absent); Urine Specific Gravity 1.011 (1.010-1.030); Urine Squamous Epithelial Cell Present (Absent); Urine Urobilinogen Negative (Negative); Urine White Blood Cell Trace(0-5/hpf) (Absent)
== END | disposition home or self-care (01) ==
LOC: ED 13:47
DX: R53.81 Other malaise (principal); E07.9 Disorder of thyroid, unspecified; I10 Essential (primary) hypertension; Z88.2 Allergy status to sulfonamides; R41.82 Altered mental status, unspecified
CPT/HCPCS: 36415; 71045; 80053; 81003; 81015; 83605; 84484; 85025; 85610; 85730; 87040; 87086; 99282

== ENCOUNTER 2024-02-14 06:20 | Observation (INO) ==
[2024-02-14 06:37] LABS: ABS Basophils 0.1 10^3/uL (0.0-0.1); ABS Eosinophils 0.6 10^3/uL (0.0-0.5); ABS Lymphocytes 1.8 10^3/uL (1.0-4.8); ABS Monocytes 0.4 10^3/uL (0.0-0.9); ABS Neutrophils 2.3 10^3/uL (1.5-7.6); Eosinophil % 11.6 %; Hemoglobin 9.9 g/dL (11.5-14.3); Lymphocyte % 34.1 %; Mean Corpuscular Hemoglobin 32.9 pg (27-33); Mean Corpuscular Volume 96.9 fL (80-97); Mean Platelet Volume 6.9 fL (7.5-11.2); Nucleated Red Blood Cells % 0.1 %/100WBC (0.0-0.8); Platelet Count 304 10^3/uL (150-450); Red Blood Count 2.99 10^6/uL (3.63-4.92); Red Cell Distribution Width 13.2 % (12-17); White Blood Count 5.2 10^3/uL (3.8-11.8)
[2024-02-14 07:24] LABS: Activated Partial Thrombo Time 31.1 seconds (26.0-38.0); INR 1.05 (0.85-1.14)
[2024-02-14 07:26] LABS: Albumin 3.6 g/dL (3.2-5.2); Albumin/Globulin Ratio 1.3 (1-3); Calcium 9.1 mg/dL (8.6-10.3); Creatinine, Serum 1.11 mg/dL (0.51-0.95); Globulin 2.8 g/dL (2-4); HDL Cholesterol 42.7 mg/dL; Indirect Bilirubin 0.3 mg/dL (0.3-1.0); Total Bilirubin 0.3 mg/dL (0.2-1.0); Total Protein 6.4 g/dL (6.4-8.9); eGFR CKD-EPI 48.4 (>60)
[2024-02-14] MEDS: Labetalol IV 5 MG/ML 20 ml VIAL IV PUSH ONE (09:00)
[2024-02-14 11:14] LABS: Urine Bacteria Absent /HPF (Absent); Urine Red Blood Cell Trace(0-2/hpf) /HPF (0-Trace); Urine White Blood Cell 3+(>20/hpf) /HPF (0-Trace)
[2024-02-14] MEDS ORDERED: Dextran 70/Hypromellose Tears Eye Drops 15 ml BTL (for Artificials Tears) BOTH EYES PRN (11:15)
[2024-02-14 11:45] LABS: Urine Appearance Clear; Urine Color Yellow
[2024-02-14 11:46] LABS: Urine Ketones Negative (Negative); Urine Protein 1+ (>=30 mg/dL) (Negative); Urine Urobilinogen Negative (Negative); Urine pH 6.5 (5.0-8.0)
[2024-02-14 11:47] LABS: Urine Bilirubin Negative (Negative); Urine Blood Negative (Negative); Urine Glucose Negative (Negative); Urine Nitrite Positive (Negative)
[2024-02-14 11:49] LABS: High Sensitivity Troponin 1 Hr 8 pg/mL (<15)
[2024-02-14] MEDS: Aspirin EC 81 mg TAB.EC (enteric coated) PO SCH (12:31)
[2024-02-14] MEDS: cefTRIAXone 1 gm/50 mL D5W 1 GM/50 ML BAG IV SCH (15:53)
[2024-02-14] MEDS ORDERED: carBAMazepine 100mg CHEWTAB PO SCH (22:00)
[2024-02-14] MEDS: carBAMazepine 100mg CHEWTAB PO SCH (23:13)
[2024-02-14] MEDS: Dextran 70/Hypromellose Tears Eye Drops 15 ml BTL (for Artificials Tears) BOTH EYES SCH (23:13)
[2024-02-15] MEDS: carBAMazepine 100mg CHEWTAB PO SCH ×2 (02:40→05:19)
[2024-02-15 08:46] LABS: ABS Eosinophils 0.3 10^3/uL (0.0-0.5); ABS Lymphocytes 1.3 10^3/uL (1.0-4.8); ABS Monocytes 0.8 10^3/uL (0.0-0.9); ABS Neutrophils 4.8 10^3/uL (1.5-7.6); Eosinophil % 4.2 %; Hematocrit 29.8 % (35-45); Hemoglobin 9.7 g/dL (11.5-14.3); Lymphocyte % 17.7 %; Mean Corpuscular Hemoglobin 31.9 pg (27-33); Mean Corpuscular Hgb Conc 32.6 g/dL (31-36); Mean Corpuscular Volume 97.9 fL (80-97); Mean Platelet Volume 6.8 fL (7.5-11.2); Platelet Count 288 10^3/uL (150-450); Red Blood Count 3.04 10^6/uL (3.63-4.92); White Blood Count 7.2 10^3/uL (3.8-11.8)
[2024-02-15] MEDS: Polyethylene Glycol 3350 17 GM PACKET PO SCH (09:26)
[2024-02-15] MEDS: Enoxaparin 30 MG/0.3 ML SYR SUBCUT SCH (09:26)
[2024-02-15 09:31] LABS: Calcium 8.7 mg/dL (8.6-10.3); Creatinine, Serum 0.94 mg/dL (0.51-0.95); Magnesium 1.9 mg/dL (1.9-2.7); Potassium 4.2 mmol/L (3.5-5.0); eGFR CKD-EPI 59.1 (>60)
[2024-02-15 09:51] VITALS: BP 159/78
[2024-02-15] MEDS: Iodixanol 320 (CONTRAST) 500 ML MDV IV ONE (11:29)
== END 2024-02-15 14:36 | disposition home or self-care (01) ==
LOC: ED 06:20 → EDHOLD 06:20 → MEDTELE 13:08
PROVIDERS: ADMIT Student in an Organized Health Care Education/Training Program; ATTEND Student in an Organized Health Care Education/Training Program